=== PATIENT | female | born 1965 | race Caucasian/White ===

== ENCOUNTER 2016-04-27 11:58 | Inpatient (IN) | payer BC ==
[~2016-04-27] VITALS: Ht 157.5 cm; Wt 90.3 kg
--- NOTE | 2016-04-27 13:04 | PHYS DOC ---
Past Medical History Past Medical History: Diabetes-Type II, Hypertension Past Surgical History: Appendectomy, Cholecystectomy, Hysterectomy, Tonsillectomy Alcohol Use: Occasionally Drug Use: None Adult General Chief Complaint Chief Complaint: ABDOMINAL PAIN HPI HPI Patient is a 50 year old female who presents with abdominal pain. Patient reports this current episode started last night; she describes a "knot-like" pain across her upper abdomen and in her right flank. No clear inciting or mitigating factors. She also reports nausea. She has had a few similar episodes over the past couple weeks. She tried taking laxatives, bowel movement this morning but no improvement in her pain. She saw Dr. Beebe in clinic today, was sent to the ED for further evaluation. Review of Systems Review of Systems Constitutional: Denies fever or chills Eyes: Denies change in visual acuity or eye pain HENT: Denies nasal congestion or sore throat Respiratory: Denies cough or shortness of breath Cardiovascular: Denies chest pain GI: Upper abdominal pain, nausea. Denies vomiting, bloody stools or diarrhea : Denies dysuria or hematuria Musculoskeletal: R flank pain Integument: Denies rash or skin lesions Neurologic: Denies headache, focal weakness or sensory changes Current Medications Current Medications Current Medications Medications (Trade) Dose Ordered Sig/Claire Start Time Stop Time Status Last Admin Dose Admin Famotidine (Pepcid) 20 mg 1X ONCE 04/27/16 13:15 04/27/16 13:16 DC 04/27/16 13:23 20 MG Morphine Sulfate 4 mg 1X ONCE 04/27/16 13:15 04/27/16 13:16 DC 04/27/16 13:24 4 MG Sodium Chloride (Iv Sodium Chloride 0.9% 1000ml Bag) 1,000 ml @ 1,000 mls/hr Q1H 04/27/16 13:15 04/27/16 14:14 DC 04/27/16 13:24 1,000 MLS/HR Allergies Allergies Allergies Coded Allergies Type Severity Reaction Last Updated Verified codeine Adverse Reaction Mild Nausea 04/27/16 Yes Physical Exam Physical Exam Constitutional: Well developed, well nourished, non-toxic appearance HENT: Normocephalic, atraumatic, bilateral external ears normal Eyes: EOMI, conjunctiva normal, no discharge Neck: Normal range of motion, no stridor Cardiovascular: Heart rate normal, regular rhythm, no murmur Lungs & Thorax: Bilateral breath sounds clear to auscultation Abdomen: Bowel sounds normal, soft, non-distended, epigastric/RUQ TTP without guarding or rebound Skin: Warm, dry, no erythema, no rash Back: No CVA tenderness Extremities: No obvious deformity, no edema Neurologic: Alert and oriented X 3, no gross deficits noted Psychologic: Affect normal, judgement normal, mood normal Current Patient Data Vital Signs Vital Signs Date Time Temp Pulse Resp B/P Pulse Ox O2 Delivery O2 Flow Rate FiO2 04/27/16 14:16 80 20 151/84 94 Room Air 04/27/16 12:35 97.7 97.7 Lab Values Laboratory Tests Test 04/27/16 12:35 04/27/16 12:50 Urine Collection Type Unknown Urine Color Yellow Urine Clarity Clear Urine pH 6.0 Urine Specific [place] 1.010 Urine Protein Negativemg/dL (NEG-TRACE) Urine Glucose (UA) 250mg/dL (NEG) Urine Ketones (Stick) Negativemg/dL (NEG) Urine Blood Negative (NEG) Urine Nitrite Negative (NEG) Urine Bilirubin Negative (NEG) Urine Urobilinogen Dipstick 0.2mg/dL (0.2 mg/dL) Urine Leukocyte Esterase Negative (NEG) Urine RBC 0/HPF (0-2) Urine WBC 0/HPF (0-4) Urine Squamous Epithelial Cells Few/LPF Urine Bacteria Few/HPF (0-FEW) White Blood Count 11.9x10^3/uL (4.0-11.0) H Red Blood Count 4.92x10^6/uL (3.50-5.40) Hemoglobin 15.0g/dL (12.0-15.5) Hematocrit 43.9% (36.0-47.0) Mean Corpuscular Volume 89fL (79-100) Mean Corpuscular Hemoglobin 31pg (25-35) Mean Corpuscular Hemoglobin Concent 34g/dL (31-37) Red Cell Distribution Width 12.5% (11.5-14.5) Platelet Count 308x10^3/uL (140-400) Neutrophils (%) (Auto) 62% (31-73) Lymphocytes (%) (Auto) 27% (24-48) Monocytes (%) (Auto) 8% (0-9) Eosinophils (%) (Auto) 2% (0-3) Basophils (%) (Auto) 1% (0-3) Neutrophils # (Auto) 7.4x10^3uL (1.8-7.7) Lymphocytes # (Auto) 3.2x10^3/uL (1.0-4.8) Monocytes # (Auto) 0.9x10^3/uL (0.0-1.1) Eosinophils # (Auto) 0.2x10^3/uL (0.0-0.7) Basophils # (Auto) 0.1x10^3/uL (0.0-0.2) Sodium Level 132mmol/L (136-145) L Potassium Level 4.5mmol/L (3.5-5.1) Chloride Level 95mmol/L (98-107) L Carbon Dioxide Level 25mmol/L (21-32) Anion Gap 12 (6-14) Blood Urea Nitrogen 15mg/dL (7-20) Creatinine 0.7mg/dL (0.6-1.0) Estimated GFR (Cockcroft-Gault) 87.9 BUN/Creatinine Ratio 21 (6-20) H Glucose Level 207mg/dL (70-99) H Calcium Level 9.4mg/dL (8.5-10.1) Total Bilirubin 0.2mg/dL (0.2-1.0) Aspartate Amino Transferase (AST) 14U/L (15-37) L Alanine Aminotransferase (ALT) 23U/L (14-59) Alkaline Phosphatase 149U/L (46-116) H Total Protein 6.9g/dL (6.4-8.2) Albumin 3.7g/dL (3.4-5.0) Albumin/Globulin Ratio 1.2 (1.0-1.7) Lipase 515U/L (73-393) H Laboratory Tests 04/27/16 12:50 Laboratory Tests 04/27/16 12:50 EKG EKG EKG (my read): sinus rhythm, rate 83, normal axis, intervals wnl, no acute ischemic changes Radiology/Procedures Radiology/Procedures CT A/P: IMPRESSION: 1. No renal or ureteral calculi. No hydronephrosis. 2. A 2.4 cm lesion in the right kidney most likely represents a cyst. Sonography could further exclude a solid lesion. 3. Moderate diffuse hepatic steatosis. Correlate for hepatic inflammation as a cause of right-sided pain. 4. Multiple small uncalcified nodules in the lung bases are indeterminate but most likely represent granulomas in the absence of known malignancy. CT of the chest could further evaluate if the diagnosis/long-term stability are not already known. Course & Med Decision Making Course & Med Decision Making Pertinent Labs and Imaging studies reviewed. (See chart for details) Patient is 50-year-old female who presents with upper abdominal pain and right flank pain. Differential includes pancreatitis, PUD, kidney stone. Will obtain labs, UA, CT abdomen/pelvis to evaluate. Has already had appendectomy and cholecystectomy. IV fluids, pain medication, nausea medication ordered for relief of symptoms. Labs notable for elevated lipase. Imaging results as above. Discussed results with patient, who continues to have significant pain and nausea. Discussed with Dr. Macdonald (PCP), will admit under her care for further evaluation and treatment. Dragon Disclaimer Dragon Disclaimer This electronic medical record was generated, in whole or in part, using a voice recognition dictation system. Departure Departure Impression: Primary Impression: Pancreatitis Disposition: ADMITTED INPATIENT Admitting Physician: Clarisa Bruno Condition: STABLE Referrals: CLARISA MACDONALD MD (PCP) DIANA OSEI MD Apr 27, 2016 13:04
[2016-04-27 13:12] LABS: BASO # 0.1 x10^3/uL (0.0-0.2); BASO % 1 % (0-3); EOS % 2 % (0-3); HEMATOCRIT 43.9 % (36.0-47.0); LYMPH # 3.2 x10^3/uL (1.0-4.8); LYMPH % 27 % (24-48); MEAN CORPUSCULAR HEMOGLOBIN 31 pg (25-35); MEAN CORPUSCULAR HGB CONC 34 g/dL (31-37); MEAN CORPUSCULAR VOLUME 89 fL (79-100); MONO % 8 % (0-9); NEUT % 62 % (31-73); PLATELET COUNT 308 x10^3/uL (140-400); RED BLOOD COUNT 4.92 x10^6/uL (3.50-5.40); RED CELL DISTRIBUTION WIDTH 12.5 % (11.5-14.5); WHITE BLOOD COUNT 11.9 x10^3/uL (4.0-11.0)
[2016-04-27] MEDS ORDERED: IV NORMAL SALINE 1000ML BAG 1,000 ML IV SCH (13:15)
[2016-04-27] MEDS ORDERED: MORPHINE SULFATE 4 MG/ML DISP.SYRIN. IV ONE ×2 (13:15→14:45)
[2016-04-27] MEDS ORDERED: FAMOTIDINE 20 MG/2 ML VIAL IVP ONE (13:15)
[2016-04-27 13:25] LABS: CALCIUM 9.4 mg/dL (8.5-10.1); CREATININE 0.7 mg/dL (0.6-1.0); GFR 87.9; POTASSIUM 4.5 mmol/L (3.5-5.1)
[2016-04-27 13:29] LABS: BILIRUBIN,URINE NEGATIVE (NEG); GLUCOSE,URINE 250 mg/dL (NEG); NITRITE,URINE NEGATIVE (NEG); PROTEIN,URINE NEGATIVE (NEG-TRACE); UROBILINOGEN,URINE 0.2 mg/dL (0.2 mg/dL)
[2016-04-27 13:33] LABS: ALBUMIN 3.7 g/dL (3.4-5.0); ALBUMIN/GLOBULIN RATIO 1.2 (1.0-1.7); TOTAL BILIRUBIN 0.2 mg/dL (0.2-1.0); TOTAL PROTEIN 6.9 g/dL (6.4-8.2)
--- NOTE | 2016-04-27 13:33 | EKG ---
[facility] [address] [place] [address] Test Date: 2016-04-27 Test Time: 12:54:54 Pat Name: LUCA PERRIN Department: Room: Gender: F [employer]: : 1965 Requested By: DIANA OSEI Order Number: [id number] Reading MD: Measurements Intervals [place] Rate: 83 P: 41 [place]: 146 QRS: 45 QRSD: 88 T: 49 QT: 358 QTc: 426 Interpretive Statements SINUS RHYTHM RI6.01 Unconfirmed report No previous ECG available for comparison
[2016-04-27 13:46] LABS: BACTERIA,URINE FEW /HPF (0-FEW); RBC,URINE 0 /HPF (0-2); SQUAMOUS EPITHELIAL CELL,UR FEW /LPF; WBC,URINE 0 /HPF (0-4)
--- NOTE | 2016-04-27 14:23 | RAD ---
EXAM: CT abdomen/pelvis without contrast. HISTORY: Right flank pain. TECHNIQUE: Computed tomography of the abdomen and pelvis was performed without intravenous contrast. COMPARISON: None. FINDINGS: Lung windows through the visualized portions of the bases reveal several noncalcified nodules that measure up to 6 mm in the left lower lobe on image 23. Most measure 4 mm or less. Bone windows reveal no suspicious lesions. Hypoattenuation of the hepatic parenchyma is consistent with moderate diffuse hepatic steatosis. The gallbladder is surgically absent. There are calcified granulomas in the spleen. The adrenal glands and pancreas are unremarkable. There are no pathologically enlarged lymph nodes. There is no evidence of appendicitis. There is no obstruction. The uterus is surgically absent. There are no renal or ureteral calculi. There is no hydronephrosis. A low-density lesion posteriorly in the right renal interpolar region measures 2.4 cm and 21 Hounsfield units in attenuation. This is most likely a mildly complicated cyst. There are no clear solid lesions on the left. IMPRESSION: 1. No renal or ureteral calculi. No hydronephrosis. 2. A 2.4 cm lesion in the right kidney most likely represents a cyst. Sonography could further exclude a solid lesion. 3. Moderate diffuse hepatic steatosis. Correlate for hepatic inflammation as a cause of right-sided pain. 4. Multiple small uncalcified nodules in the lung bases are indeterminate but most likely represent granulomas in the absence of known malignancy. CT of the chest could further evaluate if the diagnosis/long-term stability are not already known. *One or more of the following individualized dose reduction techniques were utilized for this examination: 1. Automated exposure control. 2. Adjustment of the mA and/or kV according to patient size. 3. Use of iterative reconstruction technique.
[2016-04-27] MEDS ORDERED: ONDANSETRON PF 4 MG/2 ML VIAL. IV ONE (14:45)
[2016-04-27] MEDS ORDERED: ACETAMINOPHEN 325 MG TABLET. PO PRN (15:00)
[2016-04-27] MEDS ORDERED: ONDANSETRON PF 4 MG/2 ML VIAL. IV PRN (15:00)
[2016-04-27 16:57] VITALS: BP 136/78
[2016-04-27] MEDS ORDERED: ASPI81TA2 PO (17:50)
[2016-04-27] MEDS ORDERED: LISI10TA2 PO (17:54)
[2016-04-27] MEDS ORDERED: METF500T4 PO (17:54)
[2016-04-27] MEDS ORDERED: CYCL5TAB PO (17:54)
[2016-04-27] MEDS: IV NORMAL SALINE 1000ML BAG 1,000 ML IV SCH (18:17)
[2016-04-27] MEDS: MORPHINE SULFATE 4 MG/ML DISP.SYRIN. IV PRN (18:30)
[2016-04-27 19:00] VITALS: BP 146/89
[2016-04-27 19:20] VITALS: BP 136/78
[2016-04-27 22:52] VITALS: BP 158/82
[2016-04-28] MEDS: IV NORMAL SALINE 1000ML BAG 1,000 ML IV SCH ×2 (02:01→10:12)
[2016-04-28] MEDS: MORPHINE SULFATE 4 MG/ML DISP.SYRIN. IV PRN (02:06)
[2016-04-28 02:44] VITALS: BP 141/86
--- NOTE | 2016-04-28 04:24 | ACF ---
Admission Forms Criteria ABDOMINAL PAIN Clinical Indications for Admission to Inpatient Care (Place 'X' for any and all applicable criteria): Admission is indicated for ANY ONE of the following(1)(2)(3)(4)(5): [X]I. Inpatient admission required rather than observation care (Also use Abdominal Pain: Observation Care, as appropriate) because of ANY ONE of the following: [ ]a) Severe pain requiring acute inpatient management [X]b) Identification of etiology/finding that requires inpatient care (eg, aortic dissection, free air) [ ]c) Absent bowel sounds with complete ileus(6) [ ]d) Suspected toxic megacolon [ ]e) Severe electrolyte abnormalities requiring inpatient care [ ]f) High fever or infection requiring inpatient admission as indicated by ANY ONE of following(7)(8): [ ] i) Appropriate outpatient or observational care antimicrobial treatment unavailable, not effective, or not feasible [ ] ii) Documented bacteremia [ ] iii) Temperature > 104.9 degrees F (oral) [ ] iv) T >103.1 F (oral) or < 96.8 F(rectal) that does not respond to all emergency treatment measures [ ]g) Signs of intestinal obstruction [B] [ ]h) Hemodynamic instability [ ]i) IV fluid to replace significant ongoing losses (greater than 3 L/m2 per day) (12)(13) [ ]j) Percutaneous or open drainage (eg, abscess, biliary tract ) procedures [ ]k) Parenteral nutrition regimen that must be implemented on inpatient basis [ ]l) Other condition,treatment or monitoring requiring inpatient admission. [ ]II. Peritoneal signs present [ ]III. Surgery needed that cannot be performed on an ambulatory basis. [ ]IV. Evaluation requires patient to not eat or drink for extended period ( eg, more than 24 hours). [ ]V. Contraindications and/or Inappropriate clinical situations for Observational Care in patients with abdominal pain, when ANY ONE of the following is required: [ ]a) Thorough evaluation is required to prevent catastrophic events due to delays in diagnosing (e.g.Mesenteric ischemia) 1,3 [ ]b) Patient with severe pathology or with chronic symptoms unlikely to improve in the ED stay (3) [ ]. General contraindications and/or Inappropriate clinical situations for Observational Care in patients with abdominal pain, when ANY ONE of the following is required: [ ]a) Prediction of prolongation of LOS based on ANY ONE of the following may be considered as a contraindication for observational care 2, 3, 4, 5, 6, 7, 8, 9, 10, 11 [ ]i) Age > 65 yrs. [ ]ii) Patient arriving by ambulance [ ]iii) Patient with high acuity [ ]iv) Patient requiring vital sign monitoring [ ]v) Patient on IV medication [ ]b) Systolic blood pressures 180mmHg 3,12 [ ]c) Patient with altered mental status including delirium and other alteration of consciousness, (3) [ ]d) Patient whose discharge disposition will be to a [place] [facility] home or rehabilitation home should not be managed in Emergency Department Observation Unit. CMS rule requires 3 days hospital stay before such placement.3,13 [ ]e) Patient with failure to thrive due to broad array of etiologies 3,16,17 [ ]f) Inability to ambulate 3,14 Extended stay beyond goal length of stay may be needed for(2)(3): [ ]a) Persistent abdominal pain with suspected intra-abdominal process [ ]b) Diagnosed condition requiring continued stay (e.g., pancreatitis, complicated diverticulitis) [ ]c) Surgery (e.g., colectomy) The original [facility] content created by [employer] has been revised. The portions of the content which have been revised are identified through the use of italic text or in bold, and [facility] has neither reviewed nor approved the modified material.All other unmodified content is copyright [facility]. Please see references footnoted in the original [facility] edition 2016 Admission Criteria Met?: Yes REBECA PATRICK Apr 28, 2016 04:23
[2016-04-28 05:46] LABS: BASO # 0.1 x10^3/uL (0.0-0.2); BASO % 1 % (0-3); EOS % 2 % (0-3); HEMATOCRIT 41.8 % (36.0-47.0); HEMOGLOBIN 14.5 g/dL (12.0-15.5); LYMPH # 2.9 x10^3/uL (1.0-4.8); LYMPH % 25 % (24-48); MEAN CORPUSCULAR HEMOGLOBIN 31 pg (25-35); MEAN CORPUSCULAR HGB CONC 35 g/dL (31-37); MEAN CORPUSCULAR VOLUME 89 fL (79-100); MONO % 8 % (0-9); NEUT % 64 % (31-73); PLATELET COUNT 289 x10^3/uL (140-400); RED CELL DISTRIBUTION WIDTH 12.3 % (11.5-14.5); WHITE BLOOD COUNT 11.4 x10^3/uL (4.0-11.0)
[2016-04-28 06:00] LABS: CALCIUM 8.8 mg/dL (8.5-10.1); CREATININE 0.8 mg/dL (0.6-1.0); GFR 75.3; POTASSIUM 5.1 mmol/L (3.5-5.1)
[2016-04-28 07:00] VITALS: BP 112/74
[2016-04-28] MEDS ORDERED: DEXTROSE 50% 25 GM / 50ML DISP.SYRIN. IV PRN (08:15)
--- NOTE | 2016-04-28 08:20 | PDOC1 ---
History and Physical Date of Admission Date of Admission DATE: 04/27/16 Identification/Chief Complaint Chief Complaint Abdominal pain Source Source: Patient History of Present Illness History of Present Illness Pt states that her symptoms started last Monday as she was coming home from work; started to have some stomach pain on the right side. Pain kept her up most of the evening but seemed to be better the next day when she was working from home. She started to have some stomach issues Monday, but they were minor. Monday night pain was back, but again she felt better in the morning so tried to go to work. Pain became unbearable. Thought it might have been related to constipation (although she has been having regular bowel movements) so took a laxative but this did not seem to help. States that pain seems to start on the right side and then wraps around to the front. She has never had this pain before. She has no history of pancreatitis. Of note, pt was recently started on new medications for diabetes and hypertension. Past Medical History Cardiovascular: HTN Pulmonary: No pertinent hx GI: GERD Heme/Onc: No pertinent hx Hepatobiliary: No pertinent hx Psych: Depression Musculoskeletal: Osteoarthritis Rheumatologic: No pertinent hx Infectious disease: No pertinent hx ENT: No pertinent hx Renal/: No pertinent hx Endocrine: Diabetes Dermatology: No pertinent hx Past Surgical History Past Surgical History: Appendectomy, Cholecystectomy, Tonsillectomy, Hysterectomy Family History Family History: Cancer (father- unknown type), Hypertension Social History Smoke: 1 pack per day ALCOHOL: occassional Drugs: None Current Problem List Problem List Problems Medical Problems: (1) Pancreatitis Status: Acute Problems: Current Medications Current Medications Current Medications Sodium Chloride (Iv Sodium Chloride 0.9% 1000ml Bag) 1,000 ml @ 1,000 mls/hr Q1H IV Last administered on 04/27/16 13:24; Start 04/27/16 at 13:15; Stop at 14:14; Status DC Famotidine (Pepcid) 20 mg 1X ONCE IVP Last administered on 04/27/16 13:23; Start 04/27/16 at 13:15; Stop 04/27/16 at 13:16; Status DC Morphine Sulfate 4 mg 1X ONCE IV Last administered on 04/27/16 13:24; Start at 13:15; Stop 04/27/16 at 13:16; Status DC Morphine Sulfate 4 mg 1X ONCE IV Last administered on 04/27/16 15:07; Start at 14:45; Stop 04/27/16 at 14:46; Status DC Ondansetron HCl (Zofran) 4 mg 1X ONCE IV Last administered on 04/27/16 15:06; Start 04/27/16 at 14:45; Stop 04/27/16 at 14:46; Status DC Ondansetron HCl (Zofran) 4 mg PRN Q8HRS PRN IV NAUSEA/VOMITING; Start 04/27/16 at 15:00; Stop 04/28/16 at 14:59 Morphine Sulfate 4 mg 4 mg PRN Q2HR PRN IV PAIN Last administered on 04/28/16 02:06; Start 04/27/16 at 15:00; Stop 04/28/16 at 14:59 Sodium Chloride (Iv Sodium Chloride 0.9% 1000ml Bag) 1,000 ml @ 125 mls/hr Q8H IV Last administered on 04/28/16 02:01; Start 04/27/16 at 15:00; Stop 04/28/16 at 14:59 Acetaminophen (Tylenol) 650 mg PRN Q4HRS PRN PO FEVER; Start 04/27/16 at 15:00; Stop 04/28/16 at 14:59 Aspirin (Children'S Aspirin) 81 mg DAILY PO ; Start 04/28/16 at 09:00; Status UNV Lisinopril (Prinivil) 20 mg DAILY PO ; Start 04/28/16 at 09:00; Status UNV Metformin HCl (Glucophage) 500 mg [id number] PO ; Start 04/28/16 at 18:00; Status UNV Amlodipine Besylate (Norvasc) 5 mg DAILY PO ; Start 04/28/16 at 09:00; Status UNV Active Scripts Active Reported Lisinopril 10 Mg Tablet 10 Mg PO DAILY Metformin Hcl 500 Mg Tablet 1 Tab PO DAILY Cyclobenzaprine Hcl 5 Mg Tablet 5 Mg PO BID Aspirin 81 Mg Tab.chew 81 Mg PO Allergies Allergies: Coded Allergies: codeine (Verified Adverse Reaction, Mild, Nausea, 04/27/16) ROS General: YES: Appetite (decreased over the past 3 weeks), Chills (chronic), Night Sweats (chronic) PSYCHOLOGICAL ROS: No: Anxiety, Depression Eyes: No Decreased vision, No Eye Pain HEENT: No: Nasal congestion, Sore Throat ALLERGY AND IMMUNOLOGY: YES: Post Nasal Drip, No: Hives Hematological and Lymphatic: No: Bleeding Problems, Blood Clots Respiratory: No: Cough, Shortness of breath Cardiovascular: No Chest Pain, No Edema, No Palpitations Gastrointestinal: Yes Abdominal Pain, No Constipation, No Diarrhea, No Nausea, No Vomiting Genitourinary: No Dysuria, No Urgency Musculoskeletal: No Joint Pain, No Muscle Pain Neurological: No Impaired Coord/balance, No Numbness/Tingling, No Weakness Skin: No Rash, No Skin Lesion Changes Physical Exam General: Alert, Oriented X3, Cooperative, No acute distress HEENT: Atraumatic, PERRLA, EOMI, Mucous membr. moist/pink Lungs: Clear to auscultation, Normal air movement Heart: RRR, no thrills, no gallops, no murmurs Abdomen: Normal bowel sounds, Soft, No tenderness, No hepatosplenomegaly Extremities: No clubbing, No cyanosis, No edema Skin: No rashes, No breakdown, No significant lesion Neuro: Normal speech, Normal tone, Cranial nerves 3-12 NL Psych/Mental Status: Mental status NL, Mood NL Vitals Vitals Vital Signs Date Time Temp Pulse Resp B/P Pulse Ox O2 Delivery O2 Flow Rate FiO2 04/28/16 04:44 18 Room Air 04/28/16 02:44 97.5 70 141/86 97 97.5 Labs Labs Laboratory Tests Test 04/27/16 12:35 04/27/16 12:50 04/27/16 16:50 04/28/16 05:20 Urine Collection Type Unknown Urine Color Yellow Urine Clarity Clear Urine pH 6.0 Urine Specific [place] 1.010 Urine Protein Negativemg/dL (NEG-TRACE) Urine Glucose (UA) 250mg/dL (NEG) Urine Ketones (Stick) Negativemg/dL (NEG) Urine Blood Negative (NEG) Urine Nitrite Negative (NEG) Urine Bilirubin Negative (NEG) Urine Urobilinogen Dipstick 0.2mg/dL (0.2 mg/dL) Urine Leukocyte Esterase Negative (NEG) Urine RBC 0/HPF (0-2) Urine WBC 0/HPF (0-4) Urine Squamous Epithelial Cells Few/LPF Urine Bacteria Few/HPF (0-FEW) White Blood Count 11.9x10^3/uL (4.0-11.0) 11.4x10^3/uL (4.0-11.0) Red Blood Count 4.92x10^6/uL (3.50-5.40) 4.70x10^6/uL (3.50-5.40) Hemoglobin 15.0g/dL (12.0-15.5) 14.5g/dL (12.0-15.5) Hematocrit 43.9% (36.0-47.0) 41.8% (36.0-47.0) Mean Corpuscular Volume 89fL (79-100) 89fL (79-100) Mean Corpuscular Hemoglobin 31pg (25-35) 31pg (25-35) Mean Corpuscular Hemoglobin Concent 34g/dL (31-37) 35g/dL (31-37) Red Cell Distribution Width 12.5% (11.5-14.5) 12.3% (11.5-14.5) Platelet Count 308x10^3/uL (140-400) 289x10^3/uL (140-400) Neutrophils (%) (Auto) 62% (31-73) 64% (31-73) Lymphocytes (%) (Auto) 27% (24-48) 25% (24-48) Monocytes (%) (Auto) 8% (0-9) 8% (0-9) Eosinophils (%) (Auto) 2% (0-3) 2% (0-3) Basophils (%) (Auto) 1% (0-3) 1% (0-3) Neutrophils # (Auto) 7.4x10^3uL (1.8-7.7) 7.3x10^3uL (1.8-7.7) Lymphocytes # (Auto) 3.2x10^3/uL (1.0-4.8) 2.9x10^3/uL (1.0-4.8) Monocytes # (Auto) 0.9x10^3/uL (0.0-1.1) 0.9x10^3/uL (0.0-1.1) Eosinophils # (Auto) 0.2x10^3/uL (0.0-0.7) 0.2x10^3/uL (0.0-0.7) Basophils # (Auto) 0.1x10^3/uL (0.0-0.2) 0.1x10^3/uL (0.0-0.2) Sodium Level 132mmol/L (136-145) 138mmol/L (136-145) Potassium Level 4.5mmol/L (3.5-5.1) 5.1mmol/L (3.5-5.1) Chloride Level 95mmol/L (98-107) 103mmol/L (98-107) Carbon Dioxide Level 25mmol/L (21-32) 26mmol/L (21-32) Anion Gap 12 (6-14) 9 (6-14) Blood Urea Nitrogen 15mg/dL (7-20) 13mg/dL (7-20) Creatinine 0.7mg/dL (0.6-1.0) 0.8mg/dL (0.6-1.0) Estimated GFR (Cockcroft-Gault) 87.9 75.3 BUN/Creatinine Ratio 21 (6-20) Glucose Level 207mg/dL (70-99) 183mg/dL (70-99) Calcium Level 9.4mg/dL (8.5-10.1) 8.8mg/dL (8.5-10.1) Total Bilirubin 0.2mg/dL (0.2-1.0) Aspartate Amino Transf (AST/SGOT) 14U/L (15-37) Alanine Aminotransferase (ALT/SGPT) 23U/L (14-59) Alkaline Phosphatase 149U/L (46-116) Total Protein 6.9g/dL (6.4-8.2) Albumin 3.7g/dL (3.4-5.0) Albumin/Globulin Ratio 1.2 (1.0-1.7) Lipase 515U/L (73-393) Glucose (Fingerstick) 165mg/dL (70-99) Laboratory Tests Test 04/27/16 12:35 04/27/16 12:50 04/27/16 16:50 04/28/16 05:20 Urine Collection Type Unknown Urine Color Yellow Urine Clarity Clear Urine pH 6.0 Urine Specific [place] 1.010 Urine Protein Negativemg/dL (NEG-TRACE) Urine Glucose (UA) 250mg/dL (NEG) Urine Ketones (Stick) Negativemg/dL (NEG) Urine Blood Negative (NEG) Urine Nitrite Negative (NEG) Urine Bilirubin Negative (NEG) Urine Urobilinogen Dipstick 0.2mg/dL (0.2 mg/dL) Urine Leukocyte Esterase Negative (NEG) Urine RBC 0/HPF (0-2) Urine WBC 0/HPF (0-4) Urine Squamous Epithelial Cells Few/LPF Urine Bacteria Few/HPF (0-FEW) White Blood Count 11.9x10^3/uL (4.0-11.0) 11.4x10^3/uL (4.0-11.0) Red Blood Count 4.92x10^6/uL (3.50-5.40) 4.70x10^6/uL (3.50-5.40) Hemoglobin 15.0g/dL (12.0-15.5) 14.5g/dL (12.0-15.5) Hematocrit 43.9% (36.0-47.0) 41.8% (36.0-47.0) Mean Corpuscular Volume 89fL (79-100) 89fL (79-100) Mean Corpuscular Hemoglobin 31pg (25-35) 31pg (25-35) Mean Corpuscular Hemoglobin Concent 34g/dL (31-37) 35g/dL (31-37) Red Cell Distribution Width 12.5% (11.5-14.5) 12.3% (11.5-14.5) Platelet Count 308x10^3/uL (140-400) 289x10^3/uL (140-400) Neutrophils (%) (Auto) 62% (31-73) 64% (31-73) Lymphocytes (%) (Auto) 27% (24-48) 25% (24-48) Monocytes (%) (Auto) 8% (0-9) 8% (0-9) Eosinophils (%) (Auto) 2% (0-3) 2% (0-3) Basophils (%) (Auto) 1% (0-3) 1% (0-3) Neutrophils # (Auto) 7.4x10^3uL (1.8-7.7) 7.3x10^3uL (1.8-7.7) Lymphocytes # (Auto) 3.2x10^3/uL (1.0-4.8) 2.9x10^3/uL (1.0-4.8) Monocytes # (Auto) 0.9x10^3/uL (0.0-1.1) 0.9x10^3/uL (0.0-1.1) Eosinophils # (Auto) 0.2x10^3/uL (0.0-0.7) 0.2x10^3/uL (0.0-0.7) Basophils # (Auto) 0.1x10^3/uL (0.0-0.2) 0.1x10^3/uL (0.0-0.2) Sodium Level 132mmol/L (136-145) 138mmol/L (136-145) Potassium Level 4.5mmol/L (3.5-5.1) 5.1mmol/L (3.5-5.1) Chloride Level 95mmol/L (98-107) 103mmol/L (98-107) Carbon Dioxide Level 25mmol/L (21-32) 26mmol/L (21-32) Anion Gap 12 (6-14) 9 (6-14) Blood Urea Nitrogen 15mg/dL (7-20) 13mg/dL (7-20) Creatinine 0.7mg/dL (0.6-1.0) 0.8mg/dL (0.6-1.0) Estimated GFR (Cockcroft-Gault) 87.9 75.3 BUN/Creatinine Ratio 21 (6-20) Glucose Level 207mg/dL (70-99) 183mg/dL (70-99) Calcium Level 9.4mg/dL (8.5-10.1) 8.8mg/dL (8.5-10.1) Total Bilirubin 0.2mg/dL (0.2-1.0) Aspartate Amino Transf (AST/SGOT) 14U/L (15-37) Alanine Aminotransferase (ALT/SGPT) 23U/L (14-59) Alkaline Phosphatase 149U/L (46-116) Total Protein 6.9g/dL (6.4-8.2) Albumin 3.7g/dL (3.4-5.0) Albumin/Globulin Ratio 1.2 (1.0-1.7) Lipase 515U/L (73-393) Glucose (Fingerstick) 165mg/dL (70-99) VTE Prophylaxis Ordered VTE Prophylaxis Devices: Yes VTE Pharmacological Prophylaxi: No Assessment/Plan Assessment/Plan Pt is a 50yo CF admitted for pancreatitis 1)Pancreatitis- pt no longer has a gallbladder. Will get lipid panel. Pt's current medications are not common culprits of pancreatitis, although it is a rare side effect of Ranitidine, so will hold this medication. Pt's pain currently improved. Repeat lipase level pending. Will start CLD. Pt's WBC minimally elevated. 2)Right flank pain- 2.4cm lesion on right kidney. Will get U/S for further evaluation 3)DM2- uncontrolled. HbA1C currently pending. Pt restarted on Metformin and started on Glimepiride. SSI available during hospitalization. 4)HTN- uncontrolled. Pt recently started on lisinopril 10mg. Will increase to 20mg and start Norvasc 5mg. 5)Depression- will continue pt's Fluoxetine 80mg 6)Hyponatremia- likely 2/2 dehydration, resolved. 7)Lung nodules- no known history. Pt is a long time smoker, will get CT chest for further evaluation 8)GERD- currently holding pt's Ranitidine. CLARISA RAMOS MD Apr 28, 2016 08:19
[2016-04-28] MEDS ORDERED: CONTRAST GIVEN MC PRN (08:45)
[2016-04-28] MEDS ORDERED: IOHEXOL 300 MG/ML 75 ML VIAL IV ONE (08:45)
--- NOTE | 2016-04-28 09:23 | RAD ---
EXAM: Renal/retroperitonal ultrasound HISTORY: Right renal lesion on prior CT. COMPARISON: 04/27/2016. FINDINGS: Ultrasound of the kidneys, bladder and retroperitoneum was performed. The right kidney measures 11.5 cm. Cortical thickness and echogenicity are preserved. There is no hydronephrosis. The finding of concern on prior CT corresponds with a 2.3 x 1.5 x 1.3 cm hypoechoic region, possibly with some posterior acoustic enhancement. No internal flow is demonstrated. No definitively solid lesions are seen. The left kidney measures 11.9 cm. Cortical thickness and echogenicity are preserved. There is no hydronephrosis. The bladder is partially decompressed but demonstrates some wall thickening. Both ureteral jets are visualized. Hyperechogenicity of the hepatic parenchyma is consistent with diffuse hepatic steatosis. IMPRESSION: 1. The right renal lesion on prior CT is most likely a 2.3 cm mildly complicated cyst. Sonographic follow-up is suggested in 6 months to demonstrate stability if long-term stability is not already known. 2. Diffuse hepatic steatosis.
--- NOTE | 2016-04-28 10:01 | RAD ---
EXAM: CT OF THE CHEST WITH INTRAVENOUS CONTRAST. HISTORY: Lung nodules on prior CT. TECHNIQUE: Computed tomography of the chest was performed after the intravenous administration of 75 mL Omnipaque 300. COMPARISON: 04/27/2016. FINDINGS: Images of the upper abdomen reveal changes of cholecystectomy. Moderate hypoattenuation of the hepatic parenchyma indicates diffuse hepatic steatosis. The lesion of concern in the right kidney demonstrates mild internal enhancement, likely along thin septations. No definitively solid component is seen. There are calcified granulomas in the spleen.. Bone windows reveal a small sclerotic focus within the left lateral fifth rib, likely a benign bone island. There are no clearly suspicious lesions. There are multiple hypoattenuating nodules in the right thyroid lobe that measure up to 15 mm. This is likely benign multinodular goiter. One contains a coarse calcification. There are no pathologically enlarged mediastinal or axillary lymph nodes. Calcified mediastinal lymph nodes are likely secondary to old granulomatous disease. There is no pleural or pericardial effusion. The heart is not enlarged. There are atherosclerotic calcifications of the coronary arteries. Lung windows reveal innumerable soft tissue and groundglass density nodules bilaterally, with an apical predominance. The largest groundglass density nodule inferiorly in the right upper lobe measures 13 mm. The largest solid nodules measure up to 8 mm. Tiny nodules extend to the limits of resolution of the study. A few small pneumatoceles are noted. IMPRESSION: 1. Innumerable bilateral apical predominant soft tissue density and groundglass nodules are indeterminate but most likely represent an atypical infectious process. Evidence of old granulomatous infection is present. Interstitial lung diseases such as sarcoidosis are less favored. Metastatic disease cannot be completely excluded but is less likely. Correlate with other clinical data. Ongoing follow-up is recommended. 2. The right renal lesion of prior concern demonstrates mild enhancement and thin septations. Six-month follow-up is suggested with ultrasound or CT/MRI with and without contrast. 3. Mild distal esophageal wall thickening. Correlate for soft gyrus. 4. Moderate diffuse hepatic steatosis. 5. Multiple thyroid nodules most likely indicate multinodular goiter, usually a benign process. Thyroid sonography could further evaluate if there is persistent concern. *One or more of the following individualized dose reduction techniques were utilized for this examination: 1. Automated exposure control. 2. Adjustment of the mA and/or kV according to patient size. 3. Use of iterative reconstruction technique.
[2016-04-28] MEDS: LISINOPRIL 20 MG TABLET PO SCH (10:11)
[2016-04-28] MEDS: GLIMEPIRIDE 2 MG TABLET PO SCH (10:11)
[2016-04-28] MEDS: AMLODIPINE BESYLATE 5 MG TABLET PO SCH (10:11)
[2016-04-28] MEDS: ASPIRIN 81 MG TAB.CHEW PO SCH (10:11)
[2016-04-28 10:49] VITALS: BP 148/90
[2016-04-28] MEDS: INSULIN ASPART 300 UNITS/3 ML INSULN.PEN SQ SCH ×2 (12:00→17:00)
[2016-04-28 14:49] VITALS: BP 142/90
[2016-04-28 18:50] VITALS: BP 148/86
[2016-04-28 23:27] VITALS: BP 142/91
[2016-04-29 03:34] VITALS: BP 148/94
[2016-04-29 05:45] LABS: BASO # 0.1 x10^3/uL (0.0-0.2); BASO % 1 % (0-3); EOS % 3 % (0-3); HEMATOCRIT 44.9 % (36.0-47.0); HEMOGLOBIN 15.6 g/dL (12.0-15.5); LYMPH # 2.8 x10^3/uL (1.0-4.8); LYMPH % 25 % (24-48); MEAN CORPUSCULAR HEMOGLOBIN 31 pg (25-35); MEAN CORPUSCULAR HGB CONC 35 g/dL (31-37); MEAN CORPUSCULAR VOLUME 89 fL (79-100); MONO % 8 % (0-9); NEUT % 64 % (31-73); PLATELET COUNT 304 x10^3/uL (140-400); RED BLOOD COUNT 5.04 x10^6/uL (3.50-5.40); RED CELL DISTRIBUTION WIDTH 12.6 % (11.5-14.5); WHITE BLOOD COUNT 11.5 x10^3/uL (4.0-11.0)
[2016-04-29 06:24] LABS: CHOLESTEROL/HDL RATIO 7.2
[2016-04-29 06:29] LABS: ALBUMIN 3.4 g/dL (3.4-5.0); ALBUMIN/GLOBULIN RATIO 1.1 (1.0-1.7); CALCIUM 9.3 mg/dL (8.5-10.1); CREATININE 0.7 mg/dL (0.6-1.0); GFR 87.9; POTASSIUM 4.8 mmol/L (3.5-5.1); TOTAL BILIRUBIN 0.2 mg/dL (0.2-1.0); TOTAL PROTEIN 6.6 g/dL (6.4-8.2)
[2016-04-29 07:00] VITALS: BP 128/78
[2016-04-29] MEDS: INSULIN ASPART 300 UNITS/3 ML INSULN.PEN SQ SCH ×2 (08:00→11:44)
[2016-04-29] MEDS: LISINOPRIL 20 MG TABLET PO SCH (08:28)
[2016-04-29] MEDS: AMLODIPINE BESYLATE 5 MG TABLET PO SCH (08:28)
[2016-04-29] MEDS: GLIMEPIRIDE 2 MG TABLET PO SCH (08:28)
[2016-04-29] MEDS: ASPIRIN 81 MG TAB.CHEW PO SCH (08:28)
--- NOTE | 2016-04-29 08:37 | PDOC ---
SUBJECTIVE Subjective Pt doing better, abdominal pain resolved. OBJECTIVE Vital Signs Vital Signs Date Time Temp Pulse Resp B/P Pulse Ox O2 Delivery O2 Flow Rate FiO2 04/29/16 08:28 80 128/78 04/29/16 08:28 80 128/78 04/29/16 07:00 97.5 80 18 128/78 97 Room Air 97.5 04/29/16 03:34 98.6 69 18 148/94 98 Room Air 98.6 04/28/16 23:27 97.6 83 20 142/91 98 Room Air 97.6 04/28/16 20:00 Room Air 04/28/16 18:50 97.5 78 18 148/86 98 97.5 04/28/16 14:49 98.1 79 18 142/90 94 Room Air 98.1 04/28/16 10:49 97.6 77 18 148/90 95 Room Air 97.6 04/28/16 10:15 Room Air 04/28/16 10:11 74 112/74 04/28/16 10:11 74 112/74 I & O Intake and Output 04/29/16 07:00 Intake Total 980 ml Balance 980 ml Intake Oral 980 ml # Voids 3 PHYSICAL EXAM Physical Exam General: Alert, Oriented X3, Cooperative, No acute distress HEENT: Atraumatic, PERRLA, EOMI, Mucous membr. moist/pink Lungs: Clear to auscultation, Normal air movement Heart: RRR, no thrills, no gallops, no murmurs Abdomen: Normal bowel sounds, Soft, No tenderness, No hepatosplenomegaly Extremities: No clubbing, No cyanosis, No edema Skin: No rashes, No breakdown, No significant lesion Neuro: Normal speech, Normal tone, Cranial nerves 3-12 NL Psych/Mental Status: Mental status NL, Mood NL ASSESSMENT/PLAN Assessment/Plan Pt is a 50yo CF admitted for pancreatitis 1)Pancreatitis- pt no longer has a gallbladder. Pt has hyperlipidemia- will start Atorvastatin today. Pain resolved, lipase WNL. Pt's WBC minimally elevated but she says that this is a chronic issue for her. 2)Complicated right renal cyst- will get f/u imaging in 6 months 3)DM2- uncontrolled. HbA1C 8.6. Pt restarted on Metformin and started on Glimepiride, fasting BS improved this morning. Will continue to adjust medications outpatient 4)HTN- initially uncontrolled. Improved with increase of Lisinopril to 20mg and starting Norvasc 5mg. 5)Depression- will continue pt's Fluoxetine 80mg 6)Hyponatremia- likely 2/2 dehydration, resolved. 7)Lung nodules- no known history. CT Chest states likely atypical infection. Pt not having infectious symptoms. Will consult Pulm prior to discharge for their input. 8)GERD- currently holding pt's Ranitidine. Will resume on discharge. CT Chest shows thickened distal esophagus; will have pt f/u with GI outpatient 9)Thyroid nodules- likely multinodular thyroiditis. Thyroid labs pending Problems: COMMENT Lab Laboratory Tests Test 04/28/16 09:48 04/28/16 11:44 04/28/16 16:40 04/28/16 20:43 Glucose (Fingerstick) 127mg/dL (70-99) 247mg/dL (70-99) 149mg/dL (70-99) 126mg/dL (70-99) Test 04/29/16 05:00 04/29/16 06:54 White Blood Count 11.5x10^3/uL (4.0-11.0) Red Blood Count 5.04x10^6/uL (3.50-5.40) Hemoglobin 15.6g/dL (12.0-15.5) Hematocrit 44.9% (36.0-47.0) Mean Corpuscular Volume 89fL (79-100) Mean Corpuscular Hemoglobin 31pg (25-35) Mean Corpuscular Hemoglobin Concent 35g/dL (31-37) Red Cell Distribution Width 12.6% (11.5-14.5) Platelet Count 304x10^3/uL (140-400) Neutrophils (%) (Auto) 64% (31-73) Lymphocytes (%) (Auto) 25% (24-48) Monocytes (%) (Auto) 8% (0-9) Eosinophils (%) (Auto) 3% (0-3) Basophils (%) (Auto) 1% (0-3) Neutrophils # (Auto) 7.4x10^3uL (1.8-7.7) Lymphocytes # (Auto) 2.8x10^3/uL (1.0-4.8) Monocytes # (Auto) 0.9x10^3/uL (0.0-1.1) Eosinophils # (Auto) 0.3x10^3/uL (0.0-0.7) Basophils # (Auto) 0.1x10^3/uL (0.0-0.2) Sodium Level 140mmol/L (136-145) Potassium Level 4.8mmol/L (3.5-5.1) Chloride Level 102mmol/L (98-107) Carbon Dioxide Level 29mmol/L (21-32) Anion Gap 9 (6-14) Blood Urea Nitrogen 15mg/dL (7-20) Creatinine 0.7mg/dL (0.6-1.0) Estimated GFR (Cockcroft-Gault) 87.9 BUN/Creatinine Ratio 21 (6-20) Glucose Level 169mg/dL (70-99) Calcium Level 9.3mg/dL (8.5-10.1) Total Bilirubin 0.2mg/dL (0.2-1.0) Aspartate Amino Transf (AST/SGOT) 12U/L (15-37) Alanine Aminotransferase (ALT/SGPT) 25U/L (14-59) Alkaline Phosphatase 144U/L (46-116) Total Protein 6.6g/dL (6.4-8.2) Albumin 3.4g/dL (3.4-5.0) Albumin/Globulin Ratio 1.1 (1.0-1.7) Triglycerides Level 203mg/dL (0-150) Cholesterol Level 244mg/dL (0-200) LDL Cholesterol, Calculated 169mg/dL (0-100) VLDL Cholesterol, Calculated 41mg/dL (0-40) HDL Cholesterol 34mg/dL (40-60) Cholesterol/HDL Ratio 7.2 Lipase 246U/L (73-393) Glucose (Fingerstick) 175mg/dL (70-99) CLARISA RAMOS MD Apr 29, 2016 08:37
[2016-04-29 08:53] LABS: FREE T4 1.06 ng/dL (0.76-1.46)
--- NOTE | 2016-04-29 10:44 | PDOC ---
Provider Note Provider Note dictated GÉNESIS FERNANDEZ MD Apr 29, 2016 10:43
[2016-04-29 10:48] VITALS: BP 114/78
--- NOTE | 2016-04-29 11:01 | CONS ---
DATE OF CONSULTATION: 04/29/2016 ATTENDING PHYSICIAN: Dr. Margoth Macdonald. REASON FOR CONSULTATION: Lung nodules. HISTORY OF PRESENT ILLNESS: The patient is a pleasant 50-year-old female who came into the hospital with abdominal pain and has been diagnosed with acute pancreatitis. She feels clinically better and is going home today. I have been asked to see her for an abnormal CT chest. I have reviewed patient's CT chest, which showed tiny numerous lung nodules predominantly seen in the upper lobes, more on the right than on the left and some seen in the lower lobes as well. There was no pathological adenopathy, no significant calcification seen. The patient states that she has been a smoker for 30 years up to two-third packs a day. She still smokes cigarettes. She has occasional cough due to postnasal drainage. No shortness of breath. No weight loss. She has no known malignancies. She has two dogs, but no birds at home. She said she may have some exposure to [place] Consultation requested for further evaluation and management. The other abnormality seen on the CT was a right renal lesion of some concern. She has some mild distal esophageal wall thickening. She has multiple thyroid nodules as well. PAST MEDICAL HISTORY: Significant for history of hypertension, history of tobaccoism, smoked for 30 years up two-third packs a day. ALLERGIES: CODEINE. PAST SURGICAL HISTORY: Appendectomy, cholecystectomy, tonsillectomy and complete hysterectomy. FAMILY HISTORY: Cancer in father, unknown type of cancer and family history of hypertension. SOCIAL HISTORY: Two-third packs a day for 30 years. REVIEW OF SYSTEMS: Twelve-point systems obtained. Pertinent positives discussed in history of present illness, otherwise noncontributory. All systems that were negative were reviewed as well. PHYSICAL EXAMINATION: GENERAL: She is awake, following commands. VITAL SIGNS: Blood pressure stable, pulse ox 97% on room air. NECK: Supple. LUNGS: Clear. CARDIOVASCULAR: Regular rate and rhythm. ABDOMEN: Soft, nontender. EXTREMITIES: With no pitting edema. LABORATORY DATA: Reviewed. White cell count 11.5, hemoglobin 15.6 and platelets 304. BUN 15, creatinine 0.7. Her TSH 0.58. Her lipase is 246. It was 515 on admission. IMPRESSION: 1. Tiny numerous nodules predominating in the upper lobes, more on the right than on the left, but also seen in the lower lobes as well. I most likely suspect that these are benign nodules and may represent healed granulomatous lung disease. The possibility of sarcoidosis would also be a consideration, but there is no significant chest adenopathy seen. She has no known malignancy. Healed Histoplasmosis would also be a consideration .She is due for mammogram as an outpatient. 2. Other abnormal findings on the CT are nonpulmonary including multiple thyroid nodules and also right renal lesion, for which she would follow your recommendations. RECOMMENDATIONS: 1. From a pulmonary standpoint, I do not see a need for any PET scan. However, I would repeat CT chest in 4 months and I have given her appointment for August with a CT chest prior to my visit. 2. Smoking cessation counseling provided. 3. We will obtain PFTs as an outpatient. Clinically, she is asymptomatic. 4. We may due histoplasma titers as an outpatient if the abnormalities persist. GÉNESIS FERNANDEZ MD DR: [id number]/jan JOB#: [id number] / [id number] MARGOTH Molina MD MTDD
[2016-04-29] MEDS ORDERED: AMLO5TAB2 PO (12:26)
[2016-04-29] MEDS ORDERED: GLIM2TAB PO (12:26)
[2016-04-29] MEDS ORDERED: METF500T PO (12:26)
[2016-04-29] MEDS ORDERED: LISI-334 PO (12:26)
[2016-04-29] MEDS ORDERED: ATOR20TA58 PO (12:26)
--- NOTE | 2016-04-29 12:40 | PDOC3 ---
Discharge Summary* Date of Admission: Apr 27, 2016 Date of Discharge: Apr 29, 2016 Admitting Diagnosis Problems Medical Problems: (1) Pancreatitis Status: Acute Final Diagnosis Pancreatitis, Complicated right renal cyst, DM2-uncontrolled, HTN, Depression, Hyponatremia-resolved, Lung nodules, GERD, Multinodular thyroiditis CONSULTS Pulmonology Procedures Ct Abdomen/Pelvis- 2.4cm leseion right kidney. Likely cyst, could get ultrasound for further evaluation. Moderate diffuse hepatic steatosis. Uncalcified nodules in lung bases, likely granulomas. Consider CT if diagnosis/ exterminator termite stability not known. Renal ultrasound- 2.3cm mildly complicated cyst right kidney. Recommend repeat imaging in 6 months. Diffuse hepatic steatosis. CT Chest- innumerable bilateral apical predominant soft tissue density and groundglass nodules indeterminate but most likely atypical infectious process. Old granulomatous infectious evidence present. Right renal lesion demonstrates mild enhancement and thin septations, repeat imaging in 6 months. Mild distal esophageal wall thickening, correlate for soft gyrus. Moderate diffuse hepatic steatosis. Multiple thyroid nodules most likely indicate multinodular goiter. Brief Hospital Course Pt is a 50yo CF admitted for pancreatitis 1)Pancreatitis- resolved prior to discharge. Most likely 2/2 hyperlipidemia. Pt no longer has a gallbladder. Pt was not taking any cholesterol medication, so Atorvastatin was started. Pt's WBC minimally elevated but she says that this is a chronic issue for her. 2)Complicated right renal cyst- will get f/u imaging in 6 months 3)DM2- uncontrolled. HbA1C 8.6. Pt restarted on Metformin and started on Glimepiride, fasting BS improved morning of discharge. Will continue to adjust medications outpatient 4)HTN- initially uncontrolled. Improved with increase of Lisinopril to 20mg and starting Norvasc 5mg. 5)Depression- will continue pt's Fluoxetine 80mg 6)Hyponatremia- likely 2/2 dehydration, resolved. 7)Lung nodules- no known history. CT Chest states likely atypical infection. Pt not having infectious symptoms. Pulmonary consulted and they are planning on having pt repeat scan in 4 months and follow up with them outpatient. 8)GERD- currently holding pt's Ranitidine. Will resume on discharge. CT Chest shows thickened distal esophagus; will have pt f/u with GI outpatient 9)Thyroid nodules- TSH and T4 WNL, likely multinodular goiter. F/u outpatient Disposition/Orders: D/C to Home CONDITION AT DISCHARGE: Improved, Stable Diet: 2 gr sodium, Consistent Carbohydrate Scheduled Amlodipine Besylate (Amlodipine Besylate) 5 MG PO DAILY Atorvastatin Calcium (Atorvastatin Calcium) 20 MG PO QHS Cyclobenzaprine Hcl (Cyclobenzaprine Hcl) 5 MG PO BID (Reported) Glimepiride (Amaryl) 2 MG PO [id number] Lisinopril (Lisinopril) 20 MG PO DAILY Metformin Hcl (Glucophage) 500 MG PO [id number] Miscellaneous Medications Aspirin (Aspirin) 81 MG PO (Reported) Discontinued Medications Lisinopril (Lisinopril) 10 MG PO DAILY (Reported) Metformin Hcl (Metformin Hcl) 1 TAB PO DAILY (Reported) PCP Follow up with Dr. Ramos in the next 2 weeks Time Spent Total time spent with patient [] minutes for coordination of care, counseling, and education. CLARISA RAMOS MD Apr 29, 2016 12:40
[2016-04-29] MEDS ORDERED: ATORVASTATIN CALCIUM 20 MG TABLET PO SCH (21:00)
[2016-04-30] MEDS ORDERED: METFORMIN 500 MG TABLET. PO SCH (06:00)
== END 2016-04-29 12:53 | disposition home or self-care (01) | DRG 439 ==
LOC: ER 11:58 → 5 SOUTH 14:42
PROVIDERS: ADMIT Family Medicine; ATTEND Family Medicine
DX: K85.90 Acute pancreatitis without necrosis or infection, unspecified (principal); E87.1 Hypo-osmolality and hyponatremia; N28.1 Cyst of kidney, acquired; K21.9 Gastro-esophageal reflux disease without esophagitis; I10 Essential (primary) hypertension; F32.9 Major depressive disorder, single episode, unspecified; E11.65 Type 2 diabetes mellitus with hyperglycemia; E06.9 Thyroiditis, unspecified; R91.8 Other nonspecific abnormal finding of lung field; E04.2 Nontoxic multinodular goiter; E78.5 Hyperlipidemia, unspecified; M19.90 Unspecified osteoarthritis, unspecified site; E86.0 Dehydration; F17.210 Nicotine dependence, cigarettes, uncomplicated; J84.10 Pulmonary fibrosis, unspecified; K76.0 Fatty (change of) liver, not elsewhere classified; Z80.9 Family history of malignant neoplasm, unspecified; Z82.49 Family history of ischemic heart disease and other diseases of the circulatory system; Z90.49 Acquired absence of other specified parts of digestive tract; Z88.6 Allergy status to analgesic agent; Z90.710 Acquired absence of both cervix and uterus; Z79.899 Other long term (current) drug therapy
CPT/HCPCS: 36415; 71260; 74176; 76770; 80048; 80053; 80061; 81001; 82947; 83036; 83690; 84439; 84443; 85027; 93005; 96374; 96375; 96376; J1815; J2270; J2405; J7030; Q9967; S0028; 99285-25

== ENCOUNTER → 2016-10-14 | Outpatient (CLI) | payer BC ==
[2016-04-29 08:28] VITALS: BP_DIAS 78
[2016-04-29 10:48] VITALS: BP_SYST 114
[~2016-10-14] MED LIST: AMLO5TAB2 PO; ASPI-630 PO; ATOR20TA58 PO; CYCL5TAB PO; GLIM2TAB PO; LISI-334 PO; LISI10TA2 PO; METF500T PO; METF500T4 PO
--- NOTE | 2016-10-14 16:47 | RAD ---
CT chest without IV contrast Indication: Lung nodule follow-up Comparison: Previous study from 04/28/2016 Technique: CT chest without IV contrast with multiplanar reformats. Findings: Multiple low attenuating nodules within the thyroid. No axillary adenopathy. Calcified right hilar and subcarinal lymph nodes noted. No pathologically enlarged lymph nodes. Heart is normal in size. No pericardial or pleural effusion. Calcified granuloma seen in the right upper lobe. The previously seen multiple nodules have significantly reduced in size. The nodules as follows: Currently 3 mm nodule in the right middle lobe (series 2 image 30). 4 mm nodule in the right upper lobe (series 2 image 27). 3 mm nodule in the left upper lobe (series 2 image 21). 4 mm ground lass opacity in the left lower lobe (series 2 image 39). The visualized sections through the abdomen are within normal limits. No suspicious bony lesion. Impression: Near complete resolution of previously seen multiple pulmonary nodules. Currently only 4 nodules are seen, the largest measuring 4 mm. Follow-up CT chest in 6 months recommended. PQRS Compliance Statement: One or more of the following individualized dose reduction techniques were utilized for this examination: 1. Automated exposure control 2. Adjustment of the mA and/or kV according to patient size 3. Use of iterative reconstruction technique
== END | disposition home or self-care (01) ==
LOC: CT 11:50
PROVIDERS: ATTEND Internal Medicine Critical Care Medicine
DX: J84.10 Pulmonary fibrosis, unspecified (principal); R19.8 Other specified symptoms and signs involving the digestive system and abdomen
CPT/HCPCS: 71250

== ENCOUNTER → 2017-07-07 | Outpatient (CLI) | payer BC | END | disposition home or self-care (01) | LOC: KCIC MAMMO 07:49 | DX: Z12.31 Encounter for screening mammogram for malignant neoplasm of breast (principal) | CPT/HCPCS: 77063; 77067 ==

== ENCOUNTER → 2017-07-12 | Outpatient (CLI) | payer BC ==
[2017-07-12 08:36] LABS: ISTAT CREATININE 0.5 mg/dL (0.6-1.1)
[2017-07-12] MEDS: IOHEXOL 300 MG/ML 100ML VIAL. IV (08:37)
== END | disposition home or self-care (01) ==
LOC: KCIC CT 08:06
DX: E04.2 Nontoxic multinodular goiter (principal); F17.200 Nicotine dependence, unspecified, uncomplicated; R91.8 Other nonspecific abnormal finding of lung field
CPT/HCPCS: 71260; 82565; Q9967

== ENCOUNTER → 2017-07-25 | Outpatient (CLI) | payer BC | END | disposition home or self-care (01) | LOC: KCIC US 09:34 | DX: N63.12 Unspecified lump in the right breast, upper inner quadrant (principal); E04.2 Nontoxic multinodular goiter | CPT/HCPCS: 76536; 76641 ==

== ENCOUNTER → 2017-08-07 | Outpatient (CLI) | payer BC | END | disposition home or self-care (01) | LOC: US 10:52 | DX: E04.1 Nontoxic single thyroid nodule (principal); N60.81 Other benign mammary dysplasias of right breast; N60.31 Fibrosclerosis of right breast; Z88.5 Allergy status to narcotic agent; I10 Essential (primary) hypertension; Z87.440 Personal history of urinary (tract) infections; M10.9 Gout, unspecified; M79.7 Fibromyalgia; E11.9 Type 2 diabetes mellitus without complications; F41.9 Anxiety disorder, unspecified; F32.9 Major depressive disorder, single episode, unspecified; F17.200 Nicotine dependence, unspecified, uncomplicated; Z79.84 Long term (current) use of oral hypoglycemic drugs | CPT/HCPCS: 10022; 19081; 19083; 60300; 76942; 77065; 88173; 88305; C1713 ==

== ENCOUNTER 2019-05-29 12:31 | Emergency (ER) | payer BC ==
[~2019-05-29] VITALS: Ht 157.5 cm; Wt 88.1 kg
[~2019-05-29 12:31] MED LIST changes: +AMLO5TAB10 PO; -AMLO5TAB2 PO; +METF500T16 PO; -METF500T4 PO
[2019-05-29] MEDS ORDERED: ONDANSETRON PF 4 MG/2 ML VIAL. IVP ONE (13:00)
[2019-05-29] MEDS ORDERED: FAMOTIDINE 20 MG/2 ML VIAL IVP ONE (13:00)
[2019-05-29] MEDS ORDERED: GADOTERATE 5 MMOL/10ML VIAL. IVP ONE ×2 (13:00)
[2019-05-29] MEDS ORDERED: MORPHINE SULFATE 10 MG/ML VIAL. IV ONE (13:00)
[2019-05-29 13:13] LABS: BILIRUBIN,URINE NEGATIVE (NEG); CLARITY,URINE CLEAR; COLOR,URINE YELLOW; NITRITE,URINE NEGATIVE (NEG); PH,URINE 7.5 (<5.0-8.0); PROTEIN,URINE NEGATIVE (NEG-TRACE)
[2019-05-29 13:17] LABS: BACTERIA,URINE 0 /HPF (0-FEW); RBC,URINE 0 /HPF (0-2); SQUAMOUS EPITHELIAL CELL,UR MOD /LPF; WBC,URINE OCC /HPF (0-4)
[2019-05-29 13:20] LABS: BARBITURATES NEG (NEG); BENZODIAZEPINES NEG (NEG); CANNABINOIDS NEG (NEG); COCAINE NEG (NEG); METHADONE NEG (NEG); OPIATES NEG (NEG); PHENCYCLIDINE NEG (NEG)
[2019-05-29 13:23] LABS: AMPHETAMINE/METHAMPHETAMINE NEG (NEG)
[2019-05-29 14:18] LABS: BASO # 0.1 x10^3/uL (0.0-0.2); BASO % 1 % (0-3); EOS # 0.3 x10^3/uL (0.0-0.7); EOS % 2 % (0-3); HEMOGLOBIN 15.2 g/dL (12.0-15.5); LYMPH # 4.2 x10^3/uL (1.0-4.8); LYMPH % 27 % (24-48); MEAN CORPUSCULAR HEMOGLOBIN 31 pg (25-35); MEAN CORPUSCULAR HGB CONC 36 g/dL (31-37); MEAN CORPUSCULAR VOLUME 87 fL (79-100); MONO % 6 % (0-9); NEUT % 65 % (31-73); PLATELET COUNT 396 x10^3/uL (140-400); RED BLOOD COUNT 4.96 x10^6/uL (3.50-5.40); RED CELL DISTRIBUTION WIDTH 12.9 % (11.5-14.5); WHITE BLOOD COUNT 15.5 x10^3/uL (4.0-11.0)
[2019-05-29 14:35] LABS: CALCIUM 9.5 mg/dL (8.5-10.1); CREATININE 0.6 mg/dL (0.6-1.0); GFR 103.8; POTASSIUM 4.2 mmol/L (3.5-5.1)
[2019-05-29 14:41] LABS: ALBUMIN 3.8 g/dL (3.4-5.0); ALBUMIN/GLOBULIN RATIO 1.1 (1.0-1.7); MAGNESIUM 1.9 mg/dL (1.8-2.4); TOTAL BILIRUBIN 0.3 mg/dL (0.2-1.0); TOTAL PROTEIN 7.4 g/dL (6.4-8.2)
[2019-05-29] MEDS ORDERED: IOHEXOL 300 MG/ML 100ML VIAL. IV ONE (14:45)
[2019-05-29] MEDS ORDERED: CONTRAST GIVEN. MC PRN (14:45)
--- NOTE | 2019-05-29 15:05 | PHYS DOC ---
Past Medical History Past Medical History: Diabetes-Type II, Hypertension Past Surgical History: Appendectomy, Cholecystectomy, Hysterectomy, To nsillectomy Smoking Status: Current Every Day Smoker Additional Information: 10 cigarettes per day Alcohol Use: Occasionally Drug Use: None General Adult EDM: Chief Complaint: ABDOMINAL PAIN HPI: HPI: Patient is a 53 year old female with history of cholecystectomy, appendectomy, hypertension, diabetes type 2, pancreatitis, alcohol use on the weekends, who presents to the ED today complaining of 10 out of 10 pain described as sharp and intermittent, symptoms began a week ago. Patient denies drinking alcohol in the last 3 days. Denies any nausea vomiting. Denies any fever. Reports being sent by the PCP for pancreatitis rule out Review of Systems: Review of Systems: Constitutional: Denies fever or chills. [] Eyes: Denies change in visual acuity. [] HENT: Denies nasal congestion or sore throat. [] Respiratory: Denies cough or shortness of breath. [] Cardiovascular: Denies chest pain or edema. [] GI: Reports abdominal pain, denies nausea vomiting or diarrhea : Denies dysuria. [] Musculoskeletal: Denies back pain or joint pain. [] Integument: Denies rash. [] Neurologic: Denies headache, focal weakness or sensory changes. [] Psychiatric: Denies depression or anxiety. [] Heart Score: Risk Factors: Risk Factors: DM, Current or recent (<one month) smoker, HTN, HLP, family history of CAD, obesity. Risk Scores: Score 0 - 3: 2.5% MACE over next 6 weeks - Discharge Home Score 4 - 6: 20.3% MACE over next 6 weeks - Admit for Clinical Observation Score 7 - 10: 72.7% MACE over next 6 weeks - Early Invasive Strategies Current Medications: Current Medications Medications (Trade) Dose Ordered Sig/Claire Start Time Stop Time Status Last Admin Dose Admin Famotidine (Pepcid Vial) 20 mg 1X ONCE 05/29/19 13:00 05/29/19 13:01 DC Gadoterate Meglumine (Dotarem) 10 ml 1X ONCE 05/29/19 13:00 05/29/19 13:01 DC Info (CONTRAST GIVEN -- Rx MONITORING) 1 each PRN DAILY PRN 05/29/19 14:45 05/31/19 14:44 Iohexol (Omnipaque 300 Mg/ml) 75 ml 1X ONCE 05/29/19 14:45 05/29/19 14:46 DC 05/29/19 14:47 75 ML Morphine Sulfate (Morphine Sulfate) 5 mg 1X ONCE 05/29/19 13:00 05/29/19 13:01 DC Ondansetron HCl (Zofran) 4 mg 1X ONCE 05/29/19 13:00 05/29/19 13:01 DC Allergies: Allergies: Allergies Coded Allergies Type Severity Reaction Last Updated Verified codeine Adverse Reaction Mild Nausea 04/27/16 Yes Physical Exam: PE: Constitutional: Well developed, well nourished, no acute distress, non-toxic appearance. [] HENT: Normocephalic, atraumatic, bilateral external ears normal, oropharynx moist, no oral exudates, nose normal. [] Eyes: PERRLA, EOMI, conjunctiva normal, no discharge. [] Neck: Normal range of motion, no tenderness, supple, no stridor. [] Cardiovascular:Heart rate regular rhythm, no murmur [] Lungs & Thorax: Bilateral breath sounds clear to auscultation [] Abdomen: Bowel sounds normal, soft, mild epigastric tenderness on exam, no masses, no pulsatile masses. [] Skin: Warm, dry, no erythema, no rash. [] Back: No tenderness, no CVA tenderness. [] Extremities: No tenderness, no cyanosis, no clubbing, ROM intact, no edema. [] Neurologic: Alert and oriented X 3, normal motor function, normal sensory function, no focal deficits noted. [] Psychologic: Affect normal, judgement normal, mood normal. [] Current Patient Data: Labs: Laboratory Tests Test 05/29/19 12:37 05/29/19 14:03 Urine Collection Type Unknown Urine Color Yellow Urine Clarity Clear Urine pH 7.5 (<5.0-8.0) Urine Specific [place] 1.015 (1.000-1.030) Urine Protein Negative mg/dL (NEG-TRACE) Urine Glucose (UA) Negative mg/dL (NEG) Urine Ketones (Stick) Negative mg/dL (NEG) Urine Blood Negative (NEG) Urine Nitrite Negative (NEG) Urine Bilirubin Negative (NEG) Urine Urobilinogen Dipstick 1.0 mg/dL (0.2 mg/dL) Urine Leukocyte Esterase Negative (NEG) Urine RBC 0 /HPF (0-2) Urine WBC Occ /HPF (0-4) Urine Squamous Epithelial Cells Mod /LPF Urine Bacteria 0 /HPF (0-FEW) Urine Mucus Slight /LPF Urine Opiates Screen Neg (NEG) Urine Methadone Screen Neg (NEG) Urine Barbiturates Neg (NEG) Urine Phencyclidine Screen Neg (NEG) Urine Amphetamine/Methamphetamine Neg (NEG) Urine Benzodiazepines Screen Neg (NEG) Urine Cocaine Screen Neg (NEG) Urine Cannabinoids Screen Neg (NEG) Urine Ethyl Alcohol Neg (NEG) White Blood Count 15.5 x10^3/uL (4.0-11.0) H Red Blood Count 4.96 x10^6/uL (3.50-5.40) Hemoglobin 15.2 g/dL (12.0-15.5) Hematocrit 43.0 % (36.0-47.0) Mean Corpuscular Volume 87 fL (79-100) Mean Corpuscular Hemoglobin 31 pg (25-35) Mean Corpuscular Hemoglobin Concent 36 g/dL (31-37) Red Cell Distribution Width 12.9 % (11.5-14.5) Platelet Count 396 x10^3/uL (140-400) Neutrophils (%) (Auto) 65 % (31-73) Lymphocytes (%) (Auto) 27 % (24-48) Monocytes (%) (Auto) 6 % (0-9) Eosinophils (%) (Auto) 2 % (0-3) Basophils (%) (Auto) 1 % (0-3) Neutrophils # (Auto) 10.0 x10^3/uL (1.8-7.7) H Lymphocytes # (Auto) 4.2 x10^3/uL (1.0-4.8) Monocytes # (Auto) 1.0 x10^3/uL (0.0-1.1) Eosinophils # (Auto) 0.3 x10^3/uL (0.0-0.7) Basophils # (Auto) 0.1 x10^3/uL (0.0-0.2) Sodium Level 127 mmol/L (136-145) L Potassium Level 4.2 mmol/L (3.5-5.1) Chloride Level 92 mmol/L (98-107) L Carbon Dioxide Level 24 mmol/L (21-32) Anion Gap 11 (6-14) Blood Urea Nitrogen 13 mg/dL (7-20) Creatinine 0.6 mg/dL (0.6-1.0) Estimated GFR (Cockcroft-Gault) 103.8 BUN/Creatinine Ratio 22 (6-20) H Glucose Level 107 mg/dL (70-99) H Calcium Level 9.5 mg/dL (8.5-10.1) Magnesium Level 1.9 mg/dL (1.8-2.4) Total Bilirubin 0.3 mg/dL (0.2-1.0) Aspartate Amino Transferase (AST) 26 U/L (15-37) Alanine Aminotransferase (ALT) 40 U/L (14-59) Alkaline Phosphatase 146 U/L (46-116) H Total Protein 7.4 g/dL (6.4-8.2) Albumin 3.8 g/dL (3.4-5.0) Albumin/Globulin Ratio 1.1 (1.0-1.7) Lipase 418 U/L (73-393) H Ethyl Alcohol Level < 10 mg/dL (0-10) Laboratory Tests 05/29/19 14:03 Laboratory Tests 05/29/19 14:03 Vital Signs: Vital Signs Date Time Temp Pulse Resp B/P (MAP) Pulse Ox O2 Delivery O2 Flow Rate FiO2 05/29/19 12:37 98.2 86 16 164/99 (120) 98 Room Air 98.2 EKG: EKG: [] Radiology/Procedures: Radiology/Procedures: []PROCEDURE: CT ABD PELV W/ IV CONTRST ONLY CTA scan of the abdomen and pelvis with contrast 05/29/2019 CLINICAL HISTORY: Abdominal pain. TECHNIQUE: After the intravenous administration of 75 cc of Omnipaque 300, contiguous, 5 mm axial sections were obtained through the abdomen and pelvis. One or more of the following individualized dose reduction techniques were utilized for this study: 1. Automated exposure control. 2. Adjustment of the mA and/or kV according to patient size. 3. Use of iterative reconstruction technique. FINDINGS: Images through the lung bases demonstrate minimal dependent subsegmental atelectasis bilaterally. The liver, spleen, pancreas, adrenal glands and left kidney are within normal limits. A 2.2 cm rounded low-attenuation lesion is seen involving the mid/lower pole of the right kidney. This likely represents a cyst. No further imaging workup is recommended. Atherosclerotic calcification of the abdominal aorta is seen. The abdominal aorta tapers normally. Surgical clips are seen within the gallbladder fossa consistent with a cholecystectomy. No free fluid or free air is seen within the abdomen. There is no evidence of bowel obstruction. Air and stool are seen throughout the colon. Images through the pelvis demonstrate the urinary bladder distended with urine. Calcifications are seen within the pelvis consistent with phleboliths. The patient appears to be post hysterectomy. No adnexal mass is seen. No free fluid is noted. Minimal S-shaped curvature of the thoracolumbar spine is seen. Degenerative changes are seen involving the lower thoracic and throughout the lumbar spine along with both hips. IMPRESSION: No acute abnormality is seen. Electronically signed by: Fernando Mcdonald MD (05/29/2019 3:16 PM) [id number] DICTATED and SIGNED BY: FERNANDO MCDONALD MD DATE: 05/29/19 1516 Course & Med Decision Making: Course & Med Decision Making Pertinent Labs and Imaging studies reviewed. (See chart for details) This is a 53-year-old female patient presenting to the ED today complaining of epigastric abdominal pain, symptoms for 1 week. CBC with a normal WBC, CMP with Na of 127 patient is A&OX3 she reports intentionally cutting her sodium intake for the last couple weeks. Encourage patient to increase her dietary sodium intake. Lipase 418. CT of the abdomen and pelvis is negative. Discussed above results with patient. She prefers to go home. She was discharg ed with instructions to push fluids, instructed to follow-up with the PCP or GI doctor in the course of this week or next week. Provided return precautions and discharged in stable condition. Lay Disclaimer: Lay Disclaimer: This electronic medical record was generated, in whole or in part, using a voice recognition dictation system. Departure Departure Impression: Primary Impression: Pancreatitis Qualified Codes: K85.90 - Acute pancreatitis without necrosis or infection, unspecified Additional Impression: Hyponatremia Disposition: 01 HOME, SELF-CARE Condition: STABLE Referrals: VEDA NICOLE MD (PCP) Follow-up in the course of this week or next week Patient Instructions: Acute Pancreatitis, Hyponatremia Additional Instructions: You were seen in the emergency room for abdominal pain, you were noted to have elevated lipase at 418 indicating pancreatitis your CAT scan of the abdomen and pelvis is negative for pancreatitis. We encourage you to push fluids and take a clear liquid diet. You can take [id number] Tylenol as needed for pain. Your sodium was slightly low at 127, increase your dietary sodium intake. Follow-up with your doctor or the GI doctor provided in the course of this week or next week. RORO LEUNG APRN May 29, 2019 15:05
--- NOTE | 2019-05-29 15:19 | RAD ---
CTA scan of the abdomen and pelvis with contrast 05/29/2019 CLINICAL HISTORY: Abdominal pain. TECHNIQUE: After the intravenous administration of 75 cc of Omnipaque 300, contiguous, 5 mm axial sections were obtained through the abdomen and pelvis. One or more of the following individualized dose reduction techniques were utilized for this study: 1. Automated exposure control. 2. Adjustment of the mA and/or kV according to patient size. 3. Use of iterative reconstruction technique. FINDINGS: Images through the lung bases demonstrate minimal dependent subsegmental atelectasis bilaterally. The liver, spleen, pancreas, adrenal glands and left kidney are within normal limits. A 2.2 cm rounded low-attenuation lesion is seen involving the mid/lower pole of the right kidney. This likely represents a cyst. No further imaging workup is recommended. Atherosclerotic calcification of the abdominal aorta is seen. The abdominal aorta tapers normally. Surgical clips are seen within the gallbladder fossa consistent with a cholecystectomy. No free fluid or free air is seen within the abdomen. There is no evidence of bowel obstruction. Air and stool are seen throughout the colon. Images through the pelvis demonstrate the urinary bladder distended with urine. Calcifications are seen within the pelvis consistent with phleboliths. The patient appears to be post hysterectomy. No adnexal mass is seen. No free fluid is noted. Minimal S-shaped curvature of the thoracolumbar spine is seen. Degenerative changes are seen involving the lower thoracic and throughout the lumbar spine along with both hips. IMPRESSION: No acute abnormality is seen. Electronically signed by: Fernando Rosales MD (05/29/2019 3:16 PM) [id number]
[2019-05-29 15:22] VITALS: BP 153/85
== END 2019-05-29 15:59 | disposition home or self-care (01) ==
LOC: ER 12:31
DX: K85.90 Acute pancreatitis without necrosis or infection, unspecified (principal); E87.1 Hypo-osmolality and hyponatremia; R10.13 Epigastric pain; E11.9 Type 2 diabetes mellitus without complications; I10 Essential (primary) hypertension; F17.210 Nicotine dependence, cigarettes, uncomplicated; Z90.49 Acquired absence of other specified parts of digestive tract; Z90.89 Acquired absence of other organs; Z90.710 Acquired absence of both cervix and uterus; Z98.890 Other specified postprocedural states; Z88.5 Allergy status to narcotic agent
CPT/HCPCS: 36415; 74177; 80053; 80307; 81001; 83690; 83735; 85025; 96374; 96375; 99285; G0480; J2405; J3490; Q9967

== ENCOUNTER → 2019-06-06 | Outpatient (CLI) | payer BC ==
[2019-05-29 15:22] VITALS: BP 153/85
--- NOTE | 2019-06-06 10:47 | KCIC ---
Magnetic Resonance Cholangiogram: Indications: Abdominal pain and history of pancreatitis Clinical concern for possible duct obstruction. Comparison: None. Procedure: Multisequential imaging of the abdomen was performed including T2 thin slab images through the biliary tree, without contrast. 3D MRCP Fast Spin Echo Imaging was performed of the abdomen and 3D Maximum Intensity Projection was produced on a separate work station. The biliary tree was imaged and 3D technique was employed to better visualize the biliary tree and increase sensitivity for biliary pathology including stones and strictures. Findings: Common hepatic duct, common bile duct and visualized portions of the pancreatic duct are patent, without intraluminal filling defect or acute truncation. There is a 1.9 cm simple cyst arising posteriorly from the mid right kidney. The liver, adrenals, left kidney, spleen and pancrease are included in most sequences and appear normal. Impression: No significant findings. Normal biliary tree. Electronically signed by: Ayo Rob III, MD (06/06/2019 10:45 AM) [id number]
== END | disposition home or self-care (01) ==
LOC: KCIC MRI 09:06
PROVIDERS: ATTEND Internal Medicine Gastroenterology
DX: K80.80 Other cholelithiasis without obstruction (principal); N28.1 Cyst of kidney, acquired; K85.90 Acute pancreatitis without necrosis or infection, unspecified
CPT/HCPCS: 74181

== ENCOUNTER → 2019-06-12 | Day surgery (SDC) | payer BC ==
[~2019-06-12] MED LIST changes: +HYDROmorphone 2 MG/ML VIAL IVP PRN; +IV RINGERS,LACTATED 1000ML 1,000 ML IV SCH; +LIDOCAINE 1% PF 2 ML VIAL. ID PRN; +LIDOCAINE 2% PF 5 ML VIAL. ONE; +MORPHINE SULFATE 2 MG/ML VIAL. IVP PRN; +ONDANSETRON PF 4 MG/2 ML VIAL. IVP PRN; +PROCHLORPERAZINE 10 MG/2 ML VIAL. IVP PRN; +PROPOFOL 60 ML IV ONE; +fentaNYL PF VIAL 100 MCG/2 ML VIAL IVP PRN
[2019-06-12 09:00] VITALS: BP 99/65
--- NOTE | 2019-06-14 10:06 | PATHOLOGY ---
[facility] Accession Number: [id number] . 01 Material submitted: . rectum - RECTAL POLYP . 01 Clinical history: . abdominal pain . 02 Diagnosis: Large bowel, "rectal polyp", endoscopic biopsy: - Hyperplastic polyp; negative for dysplasia and malignancy. . (MLK:mml; 06/13/2019) [facility] 06/14/2019 0955 Local . 02 Electronically signed: . Humphrey Johnson MD, Pathologist NPI- [id number] . 01 Gross description: . The specimen is received in formalin, labeled "Millicent Emanuel, rectal polyp" and consists of a fragment of [place] tissue measuring 0.3 x 0.2 x 0.2 cm which is entirely submitted in A1. (SDY; 06/12/2019) [facility] 06/12/2019 1625 Local . 02 Pathologist provided ICD-10: K62.1 . 02 CPT . 699994 Specimen Comment: A courtesy copy of this report has been sent to [phone], [phone] Specimen Comment: [id number] Specimen Comment: Report sent to / DR NICOLE Performed at: 01 [facility] [address] [facility] [address], [place] [id number] MD Oscar Son MD Phone: [phone] Performed at: 02 [facility] [address] [id number] MD Roberto Vogel MD Phone: [phone]
== END ==
LOC: ENDOS 06:51
PROVIDERS: ATTEND Internal Medicine Gastroenterology
DX: R19.4 Change in bowel habit (principal); K29.50 Unspecified chronic gastritis without bleeding; K62.1 Rectal polyp; K64.0 First degree hemorrhoids; I10 Essential (primary) hypertension; K21.9 Gastro-esophageal reflux disease without esophagitis; M10.9 Gout, unspecified; M79.7 Fibromyalgia; E11.9 Type 2 diabetes mellitus without complications; F41.9 Anxiety disorder, unspecified; F32.9 Major depressive disorder, single episode, unspecified; E66.9 Obesity, unspecified; Z68.35 Body mass index [BMI] 35.0-35.9, adult; Z87.891 Personal history of nicotine dependence; Z79.899 Other long term (current) drug therapy; Z90.49 Acquired absence of other specified parts of digestive tract; Z87.440 Personal history of urinary (tract) infections; Z90.710 Acquired absence of both cervix and uterus; Z90.721 Acquired absence of ovaries, unilateral; Z79.84 Long term (current) use of oral hypoglycemic drugs
CPT/HCPCS: 43235; 45380; 82962; J2704; J3490

== ENCOUNTER 2020-11-05 09:29 | Emergency (ER) | payer BC ==
[~2020-11-05] VITALS: Ht 157.5 cm; Wt 86.0 kg
[~2020-11-05 09:29] MED LIST changes: +AMLO-186 PO; -AMLO5TAB10 PO; -HYDROmorphone 2 MG/ML VIAL IVP PRN; -IV RINGERS,LACTATED 1000ML 1,000 ML IV SCH; -LIDOCAINE 1% PF 2 ML VIAL. ID PRN; -LIDOCAINE 2% PF 5 ML VIAL. ONE; -LISI-334 PO; +LISI10TA16 PO; -LISI10TA2 PO; +LISI20TA18 PO; -MORPHINE SULFATE 2 MG/ML VIAL. IVP PRN; -ONDANSETRON PF 4 MG/2 ML VIAL. IVP PRN; -PROCHLORPERAZINE 10 MG/2 ML VIAL. IVP PRN; -PROPOFOL 60 ML IV ONE; -fentaNYL PF VIAL 100 MCG/2 ML VIAL IVP PRN
--- NOTE | 2020-11-05 09:56 | PHYS DOC ---
Past Medical History Past Medical History: Diabetes-Type II, Hypertension Past Surgical History: Appendectomy, Cholecystectomy, Hysterectomy, Tonsillectomy Smoking Status: Current Every Day Smoker Alcohol Use: Occasionally Additional Information: "I NORMALLY DO BUT I HAVEN'T FOR 2 WEEKS." Drug Use: None General Adult EDM: Chief Complaint: ABDOMINAL PAIN HPI: HPI: Patient is a 55 year old female who present to ER for evaluation of epigastric abdominal pain associate with nausea for 2 weeks. Patient feels like she had pancreatitis again. Patient says she has history of pancreatitis in the past. Not sure what caused pancreatitis problem. Patient says she does drink alcohol but only on the weekend. She had a history of cholecystectomy, appendectomy in the past. Patient denies any cough or fever, no chest pain. Patient says she was fully vaccinated for COVID-19. Review of Systems: Review of Systems: Constitutional: Denies fever or chills. [] Eyes: Denies change in visual acuity. [] HENT: Denies nasal congestion or sore throat. [] Respiratory: Denies cough or shortness of breath. [] Cardiovascular: Denies chest pain or edema. [] GI: Positive for abdominal pain with nausea, no vomiting, no bloody diarrhea : Denies dysuria. [] Musculoskeletal: Denies back pain or joint pain. [] Integument: Denies rash. [] Neurologic: Denies headache, focal weakness or sensory changes. [] Endocrine: Denies polyuria or polydipsia. [] Lymphatic: Denies swollen glands. [] Psychiatric: Denies depression or anxiety. [] Heart Score: C/O Chest Pain: N/A Risk Factors: Risk Factors: DM, Current or recent (<one month) smoker, HTN, HLP, family history of CAD, obesity. Risk Scores: Score 0 - 3: 2.5% MACE over next 6 weeks - Discharge Home Score 4 - 6: 20.3% MACE over next 6 weeks - Admit for Clinical Observation Score 7 - 10: 72.7% MACE over next 6 weeks - Early Invasive Strategies Current Medications: Current Medications Medications (Trade) Dose Ordered Sig/Claire Start Time Stop Time Status Last Admin Dose Admin Fentanyl Citrate (Fentanyl 2ml Vial) 50 mcg 1X ONCE 11/05/20 10:00 11/05/20 10:01 UNV Ondansetron HCl (Zofran) 4 mg 1X ONCE 11/05/20 10:00 11/05/20 10:01 Sodium Chloride 1,000 ml @ 1,000 mls/ hr Q1H 11/05/20 10:00 11/05/20 10:59 Allergies: Allergies: Allergies Coded Allergies Type Severity Reaction Last Updated Verified codeine Adverse Reaction Mild Nausea 04/27/16 Yes Physical Exam: PE: Constitutional: Well developed, well nourished, no acute distress, non-toxic appearance. [] HENT: Normocephalic, atraumatic, bilateral external ears normal, oropharynx moist, no oral exudates, nose normal. [] Eyes: PERRLA, EOMI, conjunctiva normal, no discharge. [] Neck: Normal range of motion, no tenderness, supple, no stridor. [] Cardiovascular:Heart rate regular rhythm, no murmur [] Lungs & Thorax: Bilateral breath sounds clear to auscultation [] Abdomen: Bowel sounds normal, soft, positive for tenderness to palpation in epigastric area , no masses, no pulsatile masses. [] Skin: Warm, dry, no erythema, no rash. [] Back: No tenderness, no CVA tenderness. [] Extremities: No tenderness, no cyanosis, no clubbing, ROM intact, no edema. [] Neurologic: Alert and oriented X 3, normal motor function, normal sensory function, no focal deficits noted. [] Psychologic: Affect normal, judgement normal, mood normal. [] Current Patient Data: Labs: Laboratory Tests Test 11/05/20 09:47 11/05/20 09:50 Urine Collection Type Void Urine Color Yellow Urine Clarity Clear Urine pH 5.5 Urine Specific [place] 1.025 Urine Protein Negative mg/dL Urine Glucose (UA) >=1000 mg/dL Urine Ketones (Stick) Negative mg/dL Urine Blood Negative Urine Nitrite Negative Urine Bilirubin Negative Urine Urobilinogen Dipstick 0.2 mg/dL Urine Leukocyte Esterase Negative Urine RBC 0 /HPF Urine WBC 1-4 /HPF Urine Squamous Epithelial Cells Many /LPF Urine Bacteria Few /HPF Urine Mucus Mod /LPF White Blood Count 14.6 x10^3/uL Red Blood Count 4.97 x10^6/uL Hemoglobin 14.9 g/dL Hematocrit 42.6 % Mean Corpuscular Volume 86 fL Mean Corpuscular Hemoglobin 30 pg Mean Corpuscular Hemoglobin Concent 35 g/dL Red Cell Distribution Width 13.0 % Platelet Count 386 x10^3/uL Neutrophils (%) (Auto) 71 % Lymphocytes (%) (Auto) 20 % Monocytes (%) (Auto) 6 % Eosinophils (%) (Auto) 2 % Basophils (%) (Auto) 1 % Neutrophils # (Auto) 10.4 x10^3/uL Lymphocytes # (Auto) 2.9 x10^3/uL Monocytes # (Auto) 0.9 x10^3/uL Eosinophils # (Auto) 0.3 x10^3/uL Basophils # (Auto) 0.1 x10^3/uL Sodium Level 128 mmol/L Potassium Level 4.1 mmol/L Chloride Level 92 mmol/L Carbon Dioxide Level 26 mmol/L Anion Gap 10 Blood Urea Nitrogen 12 mg/dL Creatinine 0.9 mg/dL Estimated GFR (Cockcroft-Gault) 64.5 BUN/Creatinine Ratio 13 Glucose Level 251 mg/dL Calcium Level 9.4 mg/dL Total Bilirubin 0.2 mg/dL Aspartate Amino Transf (AST/SGOT) 8 U/L Alanine Aminotransferase (ALT/SGPT) 25 U/L Alkaline Phosphatase 156 U/L Total Protein 7.7 g/dL Albumin 3.8 g/dL Albumin/Globulin Ratio 1.0 Lipase 247 U/L Current Medications Medications (Trade) Dose Ordered Sig/Claire Route PRN Reason Start Time Stop Time Status Last Admin Dose Admin Sodium Chloride 1,000 ml @ 1,000 mls/ hr Q1H IV 11/05/20 10:00 11/05/20 10:59 DC 11/05/20 10:03 Ondansetron HCl (Zofran) 4 mg 1X ONCE IVP 11/05/20 10:00 11/05/20 10:01 DC 11/05/20 10:02 Fentanyl Citrate (Fentanyl 2ml Vial) 50 mcg 1X ONCE IVP 11/05/20 10:00 11/05/20 10:01 DC 11/05/20 10:01 Iohexol (Omnipaque 300 Mg/ml) 75 ml 1X ONCE IV 11/05/20 11:30 11/05/20 11:31 DC 11/05/20 11:41 Info (CONTRAST GIVEN -- Rx MONITORING) 1 each PRN DAILY PRN MC SEE COMMENTS 11/05/20 11:30 11/07/20 11:29 Vital Signs: Vital Signs Date Time Temp Pulse Resp B/P (MAP) Pulse Ox O2 Delivery O2 Flow Rate FiO2 11/05/20 09:38 98.7 91 16 167/81 (109) 98 Room Air 98.7 EKG: EKG: [] Radiology/Procedures: Radiology/Procedures: [][facility] [address] [place] [address] IMAGING REPORT Signed PATIENT: LUCA PERRIN ACCOUNT: [id number] : 1965 LOCATION: ER AGE: 55 SEX: F EXAM STATUS: REG ER ORD. PHYSICIAN: VALENTÍN JONES DO REASON: abdominal pain,hx of pancreatitis PROCEDURE: CT ABD PELV W/ IV CONTRST ONLY CT ABDOMEN+PELVIS W History: Abdominal pain. History of pancreatitis. Comparison: MRCP 06/06/2019. CT abdomen pelvis 05/29/2019. Ultrasound 04/28/2016. Technique: CT abdomen and pelvis with intravenous contrast. Findings: Left lower lobe 6 mm nodule, unchanged from May 2019. New irregular groundglass opacity left lower lobe. Calcified nodule right middle lobe. Noncalcified 2 mm nodule right middle lobe. Stable 5 mm groundglass opacity right lower lobe. Mild right coronary artery calcification. The liver is unremarkable. Status post cholecystectomy. Multiple calcific densities within the spleen consistent with old granulomatous disease. Mild pancreatic atrophy. No peripancreatic inflammatory change. The adrenals are within normal limits. 1.8 cm cystic lesion in the right renal posterior cortex demonstrate density slightly greater than fluid, however cystic on comparison MRCP and ultrasound. This likely represents hemorrhagic or proteinaceous content. Small hiatal hernia. Gastric wall thickening likely due to under distention. Small bowel is within normal limits. Appendix is surgically absent. Colon is unremarkable. No pericolonic inflammatory changes or wall thickening. Bladder is decompressed without focal abnormality. Postsurgical changes from hysterectomy. No abdominal pelvic adenopathy. Mild aortoiliac calcification. Soft tissues are unremarkable. Mild degenerative changes of the spine. Impression: 1. No acute abdominopelvic findings. 2. New ill-defined area of groundglass opacity in the left lower lobe may represent developing infection or atelectasis. Correlate with respiratory symptoms. Consider CT of the chest for further evaluation. Additional numerous pulmonary nodules appear stable 4 at least one year, likely related to granulomatous disease. 3. Mild right coronary artery calcification. ------ Exposure: One or more of the following individualized dose reduction techniques were utilized for this examination: 1. Automated exposure control 2. Adjustment of the mA and/or kV according to patient size 3. Use of iterative reconstruction technique. Electronically signed by: Sohail Sloan MD (11/05/2020 12:33 PM) [id number] DICTATED and SIGNED BY: SOHAIL SLOAN MD DATE: 11/05/20 [id number] 0 Course & Med Decision Making: Course & Med Decision Making Pertinent Labs and Imaging studies reviewed. (See chart for details) Patient is a 55-year-old female who present to ER for evaluation of epigastric abdominal pain that been going on for 2 weeks. Patient was thinking she might have pancreatitis again however her lab work came back normal and her CT scan of the abdomen pelvis did not show any acute pancreatitis problem. Patient had no cough, no fever, no chest pain. Her pain is in the epigastric area, I suspect patient might have some form of gastritis. Patient will be discharged home with antiacid medication. Patient will need to follow-up with her family physician for outpatient referral to a GI specialist for further evaluation and treatment. Patient was amenable to plan of care. Dragon Disclaimer: Dragon Disclaimer: This electronic medical record was generated, in whole or in part, using a voice recognition dictation system. Departure Departure Impression: Primary Impression: Abdominal pain Additional Impression: Gastritis Disposition: HOME / SELF CARE / HOMELESS Condition: STABLE Referrals: VEDA NICOLE MD (PCP) Follow up with your doctor next week for a referral to a GI specialist for outpatient evaluation. Patient Instructions: Abdominal Pain (Nonspecific), Gastritis, Adult Additional Instructions: Thank you for visiting our Emergency Department. We appreciate you trusting us with your care. If any additional problems come up don't hesitate to return to visit us. Please follow up with your primary care provider so they can plan additional care if needed and know about the problem that you had. If symptoms worsen come back to the Emergency Department. Any concerning symptoms that start such as chest pain, shortness of air, weakness or numbness on one side of the body, running high fevers or any other concerning symptoms return to the ER. Scripts Sucralfate (CARAFATE) 1 Gm Tablet 1 TAB PO QID for 14 Days, #56 TAB 0 Refills Prov: VALENTÍN JONES DO 11/05/20 Omeprazole (OMEPRAZOLE) 20 Mg Capsule. 1 CAP PO DAILY for 30 Days, #30 CAP 5 Refills Prov: VALENTÍN JONES DO 11/05/20 VALENTÍN JONES DO Nov 05, 2020 09:56
[2020-11-05] MEDS: fentaNYL PF VIAL 100 MCG/2 ML VIAL IVP ONE (10:01)
[2020-11-05] MEDS: ONDANSETRON PF 4 MG/2 ML VIAL. IVP ONE (10:02)
[2020-11-05] MEDS: IV NORMAL SALINE 1000ML BAG 1,000 ML IV SCH (10:03)
[2020-11-05 10:13] LABS: BASO # 0.1 x10^3/uL (0.0-0.2); BASO % 1 % (0-3); EOS # 0.3 x10^3/uL (0.0-0.7); EOS % 2 % (0-3); HEMATOCRIT 42.6 % (36.0-47.0); HEMOGLOBIN 14.9 g/dL (12.0-15.5); LYMPH # 2.9 x10^3/uL (1.0-4.8); LYMPH % 20 % (24-48); MEAN CORPUSCULAR HEMOGLOBIN 30 pg (25-35); MEAN CORPUSCULAR HGB CONC 35 g/dL (31-37); MEAN CORPUSCULAR VOLUME 86 fL (79-100); MONO # 0.9 x10^3/uL (0.0-1.1); MONO % 6 % (0-9); NEUT # 10.4 x10^3/uL (1.8-7.7); NEUT % 71 % (31-73); PLATELET COUNT 386 x10^3/uL (140-400); RED BLOOD COUNT 4.97 x10^6/uL (3.50-5.40); WHITE BLOOD COUNT 14.6 x10^3/uL (4.0-11.0)
[2020-11-05 10:33] LABS: CALCIUM 9.4 mg/dL (8.5-10.1); CREATININE 0.9 mg/dL (0.6-1.0); GFR 64.5; POTASSIUM 4.1 mmol/L (3.5-5.1)
[2020-11-05 10:37] LABS: BILIRUBIN,URINE NEGATIVE (NEG); CLARITY,URINE CLEAR; COLOR,URINE YELLOW; NITRITE,URINE NEGATIVE (NEG); PH,URINE 5.5 (<5.0-8.0); PROTEIN,URINE NEGATIVE (NEG-TRACE); UROBILINOGEN,URINE 0.2 mg/dL (0.2 mg/dL)
[2020-11-05 10:39] LABS: ALBUMIN 3.8 g/dL (3.4-5.0); TOTAL BILIRUBIN 0.2 mg/dL (0.2-1.0); TOTAL PROTEIN 7.7 g/dL (6.4-8.2)
[2020-11-05 10:57] LABS: BACTERIA,URINE FEW /HPF (0-FEW); RBC,URINE 0 /HPF (0-2)
[2020-11-05] MEDS ORDERED: CONTRAST GIVEN. MC PRN (11:30)
[2020-11-05] MEDS: IOHEXOL 300 MG/ML 100ML VIAL. IV ONE (11:41)
[2020-11-05 11:42] VITALS: BP 172/82
--- NOTE | 2020-11-05 12:35 | RAD ---
CT ABDOMEN+PELVIS W History: Abdominal pain. History of pancreatitis. Comparison: MRCP 06/06/2019. CT abdomen pelvis 05/29/2019. Ultrasound 04/28/2016. Technique: CT abdomen and pelvis with intravenous contrast. Findings: Left lower lobe 6 mm nodule, unchanged from May 2019. New irregular groundglass opacity left lower lobe. Calcified nodule right middle lobe. Noncalcified 2 mm nodule right middle lobe. Stable 5 mm doug undglass opacity right lower lobe. Mild right coronary artery calcification. The liver is unremarkable. Status post cholecystectomy. Multiple calcific densities within the spleen consistent with old granulomatous disease. Mild pancreatic atrophy. No peripancreatic inflammatory c hange. The adrenals are within normal limits. 1.8 cm cystic lesion in the right renal posterior wilian x demonstrate density slightly greater than fluid, however cystic on comparison MRCP and ultrasound. This likely represents hemorrhagic or proteinaceous content. Small hiatal hernia. Gastric wall thickening likely due to under distention. Small bowel is within no rmal limits. Appendix is surgically absent. Colon is unremarkable. No pericolonic inflammatory change s or wall thickening. Bladder is decompressed without focal abnormality. Postsurgical changes from hysterectomy. No abdomin al pelvic adenopathy. Mild aortoiliac calcification. Soft tissues are unremarkable. Mild degenerative changes of the spine. Impression: 1. No acute abdominopelvic findings. 2. New ill-defined area of groundglass opacity in the left lower lobe may represent developing infec tion or atelectasis. Correlate with respiratory symptoms. Consider CT of the chest for further evalua tion. Additional numerous pulmonary nodules appear stable 4 at least one year, likely related to gran ulomatous disease. 3. Mild right coronary artery calcification. ------ Exposure: One or more of the following individualized dose reduction techniques were utilized for thi s examination: 1. Automated exposure control 2. Adjustment of the mA and/or kV according to patient size 3. Use of iterative reconstruction technique. Electronically signed by: Sohail Underwood MD (11/05/2020 12:33 PM) [id number]
[2020-11-05] MEDS ORDERED: SUCR1TAB35 PO (13:04)
[2020-11-05] MEDS ORDERED: OMEP20CA16 PO (13:04)
== END 2020-11-05 13:25 | disposition home or self-care (01) ==
LOC: ER 09:29
DX: K29.70 Gastritis, unspecified, without bleeding (principal); E11.9 Type 2 diabetes mellitus without complications; I10 Essential (primary) hypertension; F17.200 Nicotine dependence, unspecified, uncomplicated; Z90.89 Acquired absence of other organs; Z90.49 Acquired absence of other specified parts of digestive tract; Z90.710 Acquired absence of both cervix and uterus; Z88.5 Allergy status to narcotic agent
CPT/HCPCS: 36415; 74177; 80053; 81001; 83690; 85025; 96361; 96374; 96375; 99285; J2405; J3010; J7030; Q9967

== ENCOUNTER → 2020-12-23 | Outpatient (CLI) | payer BC ==
[~2020-12-23] MED LIST changes: +BARIUM SULFATE 60% 355 ML SUSP PO ONE; +OMEP20CA16 PO; +SUCR1TAB35 PO
--- NOTE | 2020-12-23 12:57 | RAD ---
EXAMINATION: DG SMALL BOWEL FOLLOW THROUGH 12/23/2020 7:44 AM HISTORY: Periumbilical abdominal pain COMPARISON: CT abdomen pelvis 11/05/2020 TECHNIQUE: An overhead online activist image was obtained. The patient drank oral barium and overhead images we re obtained at 20 minute intervals. Spot fluoroscopic images were obtained during compression of the bowel. FINDINGS: There are cholecystectomy clips in the right upper quadrant seen on the online activist image. Moderate volume of stool. The stomach is grossly normal in morphology. Small bowel is normal in appearance without fo yenny wall thickening, narrowing, or dilation. Barium reaches the cecum by 20 minutes. Terminal ileum i s unremarkable. Appendix is not visualized. Total fluoroscopic time:1.9 minutes. Dose:45.9 mGy. IMPRESSION: Normal appearance of the small bowel. Small bowel transit time of 20 minutes. Electronically signed by: Мария Juárez MD (12/23/2020 12:55 PM) [id number]
== END ==
LOC: RAD 08:42
PROVIDERS: ATTEND Internal Medicine Gastroenterology
DX: R10.33 Periumbilical pain (principal); Z90.49 Acquired absence of other specified parts of digestive tract
CPT/HCPCS: 74250

== ENCOUNTER → 2020-12-30 | Outpatient (CLI) | payer BC ==
[~2020-12-30] MED LIST changes: -BARIUM SULFATE 60% 355 ML SUSP PO ONE
--- NOTE | 2020-12-31 10:53 | RAD ---
CLINICAL INDICATION: LUCA PERRIN, who is 55 years of age, presents for imaging evaluation of the palpable area of concern. The area of concern is described to be in the right breast COMPARISON: Prior mammographic imaging dating back to TECHNIQUE: Diagnostic views of the bilateral breasts were obtained, utilizing digital technique. BREAST COMPOSITION: There are scattered fibroglandular densities. MAMMOGRAM FINDINGS: There are no suspicious masses, microcalcifications, or architectural distortion to suggest malignanc y in either breast. The visualized axillae appear unremarkable. Given the palpable abnormality, targeted sonographic evaluation was performed. ULTRASOUND FINDINGS: Targeted ultrasound of the patient detected area of concern was performed. 1:00 position, 6-7 cm from the nipple: A series of cystic structures are seen within the right breast with peripheral heterogeneous high density components. Mild associated irregularity of the cystic st ructures. IMPRESSION: 1. Right breast probably benign mass for which follow up is recommended. RECOMMENDATION: In the absence of new clinical symptoms or change in physical exam, short term follow up diagnostic e xamination is recommended in 6 months to assess for interval stability. BIRADS 3: PROBABLY BENIGN Electronically signed by: Ruy Sevilla MD (12/31/2020 10:51 AM) [id number]
== END ==
LOC: MAMMO 13:12
PROVIDERS: ATTEND Family Medicine
DX: R92.8 Other abnormal and inconclusive findings on diagnostic imaging of breast (principal)
CPT/HCPCS: 76641; 77066